=== PATIENT | male | born 1955 | race Caucasian/White ===

== ENCOUNTER → 2023-05-09 09:53 | Outpatient (REF) | payer OTHER, SELFPAY | LOC: DHVS 09:53 | PROVIDERS: ATTENDING PHYSICIAN Surgery Vascular Surgery | DX: I65.22 Occlusion and stenosis of left carotid artery (principal) | CPT/HCPCS: 93880; 93922; 93925 ==

== ENCOUNTER → 2024-01-16 13:02 | Outpatient (REF) | payer OTHER, SELFPAY | LOC: RAD 13:02 | PROVIDERS: ATTENDING PHYSICIAN Surgery Vascular Surgery | DX: I73.9 Peripheral vascular disease, unspecified (principal); Z98.890 Other specified postprocedural states; I65.22 Occlusion and stenosis of left carotid artery | CPT/HCPCS: 93880; 93922; 93925; 93978 ==

== ENCOUNTER → 2024-02-01 16:59 | Outpatient (REF) | payer OTHER, SELFPAY | LOC: RAD 16:59 | PROVIDERS: ATTENDING PHYSICIAN Physician Assistant; FAMILY PHYSICIAN Surgery Vascular Surgery | DX: I65.22 Occlusion and stenosis of left carotid artery (principal) | CPT/HCPCS: 70496; 70498; Q9967 ==

== ENCOUNTER → 2024-04-02 11:12 | Outpatient (REF) | payer OTHER, SELFPAY | LOC: HWRCS 11:12 | PROVIDERS: ATTENDING PHYSICIAN Internal Medicine Cardiovascular Disease | DX: I25.10 Atherosclerotic heart disease of native coronary artery without angina pectoris (principal); I65.23 Occlusion and stenosis of bilateral carotid arteries; Z01.818 Encounter for other preprocedural examination | CPT/HCPCS: 78452; 93017; A9500; J2785 ==

== ENCOUNTER 2024-04-18 06:55 | Inpatient (IN) | payer OTHER, SELFPAY ==
[2024-04-15 10:47] VITALS: BMI 28.0
[2024-04-15 11:19] LABS: % Basophils 1.1 % (0-2); % Eosinophils 4.4 % (0-6); % Immature Granulocytes 0.6 % (0-0.5); % Lymphocytes 19.5 % (20.5-51.1); % Monocytes 7.4 % (1.7-9.3); Absolute Basophils 0.1 10^3/uL (0-0.2); Absolute Eosinophils 0.4 10^3/uL (0-0.7); Absolute Immature Granulocytes 0.1 10^3/uL (0-0.05); Absolute Lymphocytes 1.9 10^3/uL (1.2-3.4); Absolute Monocytes 0.7 10^3/uL (0.1-0.6); Absolute Neutrophils 6.5 10^3/uL (1.4-6.5); Hemoglobin 9.3 g/dL (13.0-18.0); Mean Corpuscular Hgb 30.4 pg (27.0-31.0); Mean Platelet Volume 11.1 fL (7.4-10.4); Nucleated Red Blood Cells % 0 % (-); Platelet Count 190 10^3/uL (130-400); Red Blood Cell Count 3.06 10^6/uL (4.70-6.10); Red Cell Dist. Width 16.6 % (11.5-14.5); White Blood Cell Count 9.7 10^3/uL (4.8-10.8)
[2024-04-15 11:24] LABS: INR 1.74; PT 20.6 Sec (11.4-14.6)
[2024-04-15 11:55] LABS: Blood Urea Nitrogen 63 mg/dl (9-20); Calcium 9.6 mg/dl (8.4-10.2); Carbon Dioxide 27 mmol/L (22-30); Chloride 97 mmol/L (98-107); Estimated Creatinine Clearance 8 ml/min; Glucose 102 mg/dl (70-99); Potassium 4.2 mmol/L (3.5-5.1); Sodium 139 mmol/L (135-145); eGFR 6.43
--- NOTE | 2024-04-16 13:13 | PTCARENOTE ---
Patients 04/15 INR 1.74- Kadi & Ana @ Dr. Nguyen office notified
[2024-04-18] VITALS (7 sets, daily range): BP systolic 56–124; BP diastolic 33–60; BMI 27.9; BMI 27.8
[2024-04-18] MEDS: PERIDEX 0.12% ORAL RINSE 15 ML PO (07:02)
[2024-04-18] MEDS: NSS 500 IV (07:02)
[2024-04-18] MEDS: BACTROBAN NASAL 1 GRAM NASAL (07:02)
--- NOTE | 2024-04-18 07:05 | W.SUR.PREOP ---
Pre-Operative Surgical Note
-
I have examined this patient prior to the performance of the scheduled procedure.
The patient's condition is unchanged from the time of the current History and
Physical and the patient is able to undergo the scheduled procedure.
[2024-04-18 07:21] LABS: Glucose - Point of Care 90 mg/dl (70-99)
[2024-04-18 07:52] LABS: INR 1.23; PT 16.1 Sec (11.4-14.6)
[2024-04-18 07:53] LABS: APTT 34.2 Sec (23.4-35.0)
--- NOTE | 2024-04-18 10:29 | W.SUR.POST ---
Surgical Immediate Post Op
Note
Pre Op Diagnosis: Right Carotid Stenosis
Post Op Diagnosis: Right Carotid Stenosis
Procedure Performed: Right carotid endarterectomy with bovine pericardium patch angioplasty with shunt placement and EEG monitoring and SSEP
Primary Surgeon: Quincy Zeng MD
Review Consultant: Chantal Matute [employer]
Anesthesia:GETA
Estimated Blood Loss:50 ml
Fluids: See anesthesia flow sheet
Drains/Shunts: N/A
Specimens/Cultures: Right carotid plaque
Doppler/Duplex/Angio (Y/N): Y
Complications: None
Operative Findings: upon awakening from anesthesia able to move BL UE and LE to command and spontaneous, tongue midline, and face symmetrical
[2024-04-18 11:00] LABS: Glucose - Point of Care 142 mg/dl (70-99)
[2024-04-18] MEDS: NSS 1000 IV (11:06)
--- NOTE | 2024-04-18 11:18 | OR.RPT ---
Operative Report
Operative Report
PROCEDURE DATE: 04/18/2024
Preoperative diagnosis: Asymptomatic critical right carotid artery stenosis.
Postoperative diagnosis: Same
Procedure: Right carotid endarterectomy with bovine pericardial patch angioplasty and intraoperative EEG and SSEP monitoring. (Need for intraoperative temporary shunt placement).
Surgeon: Karri
Sandwich Wrapper: JENNY Matute, required for all aspects of procedure including assistance with traction/countertraction, following of suture line, assistance with closure.
Complications: None
Anesthesia: General
Indications for procedure:
Critical right carotid artery stenosis. Asymptomatic. Risk/benefits/alternatives of revascularization fully discussed. Also discussed the extent of common carotid artery disease, and likely some irregular plaque in the common carotid artery and
limited ability to manage the extent of it. Patient and his family understood all wished to proceed.
Description of procedure:
Patient was identified brought to the operating room placed on the table in supine position. After the adequate administration of anesthesia and perioperative antibiotics he was prepped and draped in the standard surgical fashion. A standard
preoperative timeout was undertaken and everybody was in agreement the plan. A standard longitudinal incision was made in the right neck that was carried through the skin subcutaneous tissue. Using the electrocautery dissection was carried through
the platysma muscle layer and then alongside the anterior medial border of the sternocleidomastoid muscle. Then using a combination of sharp dissection with the Metzenbaum scissors and electrocautery I dissected along the anterior medial border of
the internal jugular vein. The common facial vein branch was ligated between silk ties and then divided. I then deepened my retraction. The common carotid artery was identified and carefully dissected away from the surrounding structures take
great care to avoid any injury to the structures. A vessel loop was passed around it which was double looped, but not yet tightened. It was noted to be soft proximally in the field. Note the vagus nerve was clearly noted anterior to the common
carotid artery, and carefully was dissected off the anterior carotid and laterally without actually grasping the nerve (but rather grasping the tissues around it), and thereby we were able to protect the nerve from harm's way through the entirety of
the case. I then continued my dissection up the common carotid artery to the bulb staying only on the anterior surface of the carotid artery. Then I carried the dissection up to the internal carotid artery and then to the distal internal carotid
artery. I identified where it was soft and carefully circumferentially dissected the internal carotid artery with minimal mobilization and passed a vessel loop around it. Note the hypoglossal nerve was preserved from harm's way. The patient was
given an appropriate dose of heparin 7500 units. Next I dissected the anterior surface of the external carotid artery. The superior thyroid branch was noted, but did not require circumferential dissection as there is a long enough neck of the
external carotid artery that could be controlled. The external carotid was then carefully circumferentially dissected with minimal mobilization and vessel loops passed around it which was double looped but not yet tightened. After 3 minutes of
heparin circulation time and confirmation of optimization of the blood pressure with my anesthesiology colleagues, I clamped the distal internal carotid artery where it was soft. There was no immediate EEG or SSEP changes. After 1 minute of test
clamp time there was no changes noted. Therefore at this point, the vessel loops on the external carotid artery was tightened and the common carotid artery was clamped where it was soft proximally. An arteriotomy was made on the common carotid
artery with an 11 blade and extended using a Rodríguez scissor. Was extended the arteriotomy onto the mid to distal internal carotid artery. [Plaque description]. A Canadian was then used to endarterectomized the plaque. An endarterectomy plane was
created, and the plaque was then endarterectomized. Distally I feathered the plaque out to a nice clean endpoint in the distal internal carotid artery. Next I endarterectomized the intima back to more normal intima in the common carotid artery,
and the intima was cut flush there. There was still some residual plaque in the common carotid artery proximally, but did not cause any luminal narrowing, and as I had noted on prior CT scan there is extensive plaque throughout the common carotid
artery. Therefore I found a nice endpoint to cut the plaque flush. I then grasped the plaque and everted plaque out of the origin of the external carotid artery. The plaque was then sent off for specimen. Of note the plaque was a mixed plaque
with calcified features, but a central more hemorrhagic component right at the origin of the internal carotid artery. The origin of the external carotid artery was carefully visualized and any fine debris were removed with fine forceps. Proximal
and distal endpoints were then carefully inspected. Any fine debris was removed with fine forceps, and the intima was noted to be nicely adherent proximally distally. Next any fine debris were removed throughout the endarterectomy bed with fine
forceps. I then flushed heparinized saline. I was very satisfied. Then, I used a bovine pericardial patch to sew a patch angioplasty with a running 6-0 Prolene suture. While I was suturing the patch into place, it was noted that there were SSEP
changes. The blood pressure had remained stable. Therefore at this point, I quickly was able to place a shunt into the internal carotid artery and secured it with Vesseloops, and allowed to backbleed before putting it into the common carotid
artery and then securing it. Immediately upon shunt placement, the SSEPs returned to baseline. Therefore at this point I continued to suture the patch into place. When I was close to completing the suture line, I then removed the shunt and
reclamped the internal carotid artery and common carotid arteries. I now quickly completed the suture line. Prior to completing and tying down my suture line, I backbled sequentially each branch and reclamped each branch prior to unclamping the
next branch. I then irrigated with heparinized saline. Then I completed and tied down my suture line. We then restored flow in the common carotid and external carotid arteries. There was a significant bleeding point in the most proximal aspect
of the patch on the common carotid artery. It appears there is a little defect from the patch to the wall may have been a little tear in the wall. I reclamped and quickly fix this with a 5-0 Prolene [id number] with a pledget. I then released
clamps again and this was hemostatic. Now we released our clamps on the external carotid and common carotid arteries again. Finally, we released flow in the internal carotid artery. There was excellent pulsatile flow in all 3 vessels. There was
an excellent Doppler signal in the internal carotid artery distal to the patch with a good normal low resistance Doppler signal. There was a good Doppler signal in the external carotid artery as well. A few 6-0 Prolene [id number] sutures were
placed along any bleeding points along the suture line. Protamine was given to reverse the heparin. Hemostasis was completely achieved. We then irrigated and confirmed full hemostasis. We then closed in layers with 2-0 Vicryl layer to
reapproximate the sternocleidomastoid muscle, followed by 3-0 Vicryl platysma muscle running layer, followed by 4 Monocryl subcuticular stitch. Dermabond was applied. The patient tolerated procedure well. He awoke moving all extremities to
command with tongue in the midline. All sponge, needle, instrument counts were correct at the end of the case. The patient was transported to recovery room in good condition.
[2024-04-18 11:36] LABS: Hematocrit 25.7 % (39.0-52.0); Hemoglobin 8.3 g/dL (13.0-18.0); Mean Corp Hgb Conc. 32.3 g/dL (33.0-37.0); Mean Corpuscular Hgb 31.1 pg (27.0-31.0); Mean Corpuscular Volume 96.3 fL (80.0-94.0); Mean Platelet Volume 11.1 fL (7.4-10.4); Platelet Count 167 10^3/uL (130-400); Red Blood Cell Count 2.67 10^6/uL (4.70-6.10); Red Cell Dist. Width 17.2 % (11.5-14.5); White Blood Cell Count 10.2 10^3/uL (4.8-10.8)
[2024-04-18 11:44] LABS: Blood Urea Nitrogen 24 mg/dl (9-20); Calcium 8.5 mg/dl (8.4-10.2); Carbon Dioxide 27 mmol/L (22-30); Chloride 98 mmol/L (98-107); Estimated Creatinine Clearance 14 ml/min; Glucose 148 mg/dl (70-99); Potassium 3.5 mmol/L (3.5-5.1); Sodium 135 mmol/L (135-145); eGFR 13.05
[2024-04-18 11:45] LABS: INR 1.44; PT 18.1 Sec (11.4-14.6)
[2024-04-18 11:46] LABS: APTT 35.9 Sec (23.4-35.0)
--- NOTE | 2024-04-18 12:15 | CON.INTV ---
Consultation
Consultation Request
Date/Time Consultation Requested: 04/18/2024856
Date/Time Consultation Performed: 04/18/2024912
Requesting Provider: GRACY Griggs
Performing Provider: Dr. Garcia
Reason for Consultation: s/p R-CEA
Medical History
-
Chief Complaint: Elective R-CEA
History of Present Illness:
69-year-old male with a past medical history of bilateral carotid artery stenosis, PAD, history of AAA s/p repair, ESRD on HD MWF, history of CAD, A-fib on Eliquis, DM type II, hypertension, history of thrombotic occlusion of left ICA and
hyperlipidemia who presents with right carotid endarterectomy. Patient known to the vascular surgery service with last visit on 02/20/[address] Zeng. Patient has had right-sided progression of his stenosis although he remains asymptomatic. He
has a history of left carotid endarterectomy and he has >75% stenosis however remains asymptomatic and has a significant intramural hematoma throughout. Because of this, left-sided carotid intervention was not recommended however the right side was
recommended to be intervened upon. Risks and benefits and alternatives of revascularization were discussed and patient agreed to a vascular procedure. Today he underwent right carotid endarterectomy with bovine pericardial patch angioplasty.
There were no immediate complications and he was transferred to the ICU postoperatively for further care, and [employer] services consulted for additional management/recommendations.
Patient arrived to the ICU from the PACU at approximately 12 PM on 04/18/2024. When I saw the patient, he was resting in bed in no acute distress. Currently on Nathanael-Synephrine at 10 mcg/min. BP via A-line: 121/46, saturating 97% on room air and
heart rate 98. Patient's , Cresencio, is at bedside. All questions were answered. Patient currently feels well, denies chest pain, SOB, CHAN, nausea, fevers or chills. He has tenderness along the right side of his neck where the incision was
made/surgery was performed.
PMHx: History of CVA with right-sided weakness, A-fib on Eliquis, AAA s/p repair, hyperlipidemia, orthostatic hypotension on midodrine, history of CAD, ESRD on HD MWF, DM type II, hypertension, history of thrombotic occlusion of left ICA
PSHx: AAA repair (2017), left upper extremity AV fistula creation (2018), history of left CEA (11/05/2020)
Past Medical History
Past Medical History: Other (Above as per HPI)
Past Surgical History: Other (Above as per HPI)
Social History
Tobacco: Former Smoker (Quit smoking approximately 26 years ago, smoked 1-1.5 PPD x 20-25 years)
Alcohol: None
Drug: None
Personal:
Living: With Family
Family History
Family History: CAD (Mother) and Hypertension (Mother)
Allergies / Home Medications
Allergies
Allergy/AdvReac Type Severity Reaction Status Date / Time
adhesive Allergy Shortness Verified 04/18/24 06:39
of Breath
Home Medications
�Medication �Instructions �Recorded �Confirmed �Last Taken �Type
apixaban 5 mg tablet (Eliquis) 5 mg PO BID 11/02/20 04/18/24 04/16/24 08:00 History
aspirin 81 mg tablet,delayed 81 mg PO DAILY 11/02/20 04/18/24 04/18/24 05:00 History
release
diltiazem HCl 120 mg 120 mg PO DAILY 11/02/20 04/18/24 04/18/24 05:00 History
capsule,extended release 24 hr
midodrine 10 mg tablet 10 mg PO TID 11/02/20 04/18/24 04/18/24 05:00 History
glimepiride 2 mg tablet 4 mg PO BID 12/21/21 04/18/24 04/17/24 20:00 History
metoprolol tartrate 100 mg tablet 100 mg PO BID 12/21/21 04/18/24 04/18/24 05:00 History
(Lopressor)
insulin degludec 100 unit/mL (3 15 unit SC HS 04/09/24 04/18/24 04/17/24 08:00 History
mL) subcutaneous pen (Tresiba
FlexTouch U-100 insulin)
pioglitazone 15 mg tablet 15 mg PO DAILY 04/09/24 04/18/24 04/17/24 20:00 History
rosuvastatin 40 mg tablet 40 mg PO HS 04/09/24 04/18/24 04/17/24 20:00 History
Review of Systems
-
History Source: Patient
All other systems: Negative unless noted
Vitals / Labs / Diagnostic Testing
Vital Signs
Temp Pulse Resp BP Pulse Ox
98.7 F 95 15 103/38 98
04/18/24 15:43 04/18/24 17:30 04/18/24 17:30 04/18/24 17:30 04/18/24 17:30
Lab Data
04/18/24 11:12
04/18/24 11:12
Laboratory Results
04/18/24 04/18/24
07:14 11:12
PT 16.1 H 18.1 H
INR 1.23 1.44
APTT 34.2 35.9 H
Diagnostic Testing:
Physical Exam
-
HEENT: Normocephalic, Anicteric and Other (Linear closed incision along right anterior neck with ice pack on incision)
Cardiovascular: S1/S2 and Peripheral Edema (negative)
Respiratory: Clear, Wheeze (negative), Rales (negative), Rhonchi (negative) and Accessory Resp Muscle Use (negative)
GI: Soft, Non Distended, Non Tender and Normal Bowel Sounds
Neurology: Awake, Alert and Tremors (negative)
Skin: Warm and Dry
General: Respiratory Distress (negative), Comfortable, Fever (negative) and Chills (negative)
Assessment
-
Assessment: 69-year-old male with a past medical history of bilateral carotid artery stenosis, PAD, history of AAA s/p repair, ESRD on HD MWF, history of CAD, A-fib on Eliquis, DM type II, hypertension, history of thrombotic occlusion of left ICA
and hyperlipidemia who presents with right carotid endarterectomy. Patient known to the vascular surgery service with last visit on 02/20/[address] Zeng. Patient has had right-sided progression of his stenosis although he remains asymptomatic.
He has a history of left carotid endarterectomy and he has >75% stenosis however remains asymptomatic and has a significant intramural hematoma throughout. Because of this, left-sided carotid intervention was not recommended however the right side
was recommended to be intervened upon. Risks and benefits and alternatives of revascularization were discussed and patient agreed to a vascular procedure. Today he underwent right carotid endarterectomy with bovine pericardial patch angioplasty.
There were no immediate complications and he was transferred to the ICU postoperatively for further care, and [employer] services consulted for additional management/recommendations.
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
left ICA
Impression:
#Asymptomatic critical right carotid artery stenosis s/p right carotid endarterectomy with bovine pericardial patch angioplasty and intraoperative EEG and SSEP monitoring (POD #0)
#Acute on chronic anemia
#History of CVA with residual right-sided hemiplegia
#ESRD on HD MWF
#Orthostatic hypotension on midodrine
#History of AAA s/p repair
#DM type II
#Hyperlipidemia
#Hypertension
#History of thrombotic occlusion of left ICA
#Former tobacco smoker (quit smoking approximately 26 years ago, smoked 1-1.5 PPD x 20-25 years)
Plan:
Postoperative surgical intensive care unit monitoring
Supplemental oxygen as needed to maintain SpO2 >90-94%
prn nebulized bronchodilators
Incentive spirometry encouraged 10x per hour for at least 4 hrs a day
Aspiration precautions
Pain control
Neuro and vascular checks per protocol
Maintain MAP>65 --> wean down Nathanael-Synephrine as tolerated to maintain this MAP goal
Replete electrolytes with K>4, Mg>2
Maintain euglycemia with goal BG 140-180
Vascular surgery following-correspondence and operative notes reviewed
Transfuse blood products as needed to keep Hb>7g/dL, and plt>50k (given post-operative status)
DVT prophylaxis
Early nutrition
Early mobilization
Critical care statement: A total of 41 minutes of critical care time was provided for this patient today. This includes management of unstable vital signs, evaluation of the patient at bedside, reviewing the patient's pertinent medical records
including radiographs, microbiology, laboratory evaluations, and discussion with primary team, consultants, pharmacy, nutrition, physical therapy, case management, charge nurse, critical care nursing, and respiratory therapy.
[2024-04-18] MEDS: ProAmatine 10 MG PO ×2 (12:59→17:30)
[2024-04-18] MEDS: NEO-SYNEPHRINE 250 IV (13:07)
--- NOTE | 2024-04-18 13:16 | PTCARENOTE ---
patient received from PACU@1200. utilizing video director imaging. patient oriented to room, reviewed plan of care. denies pain,nausea. questions answered. vascular PAC updated re fluids ordered and running as patient is anuric and on HD. orders
received. neuro intact, slight right arm and leg weakness which spouse states in residual from prior cva. symmetrical smile. pupils equal and reactive. monitor afib with occasional pvc. right radial arterial line with cuff correlation. anuric.
abdomen soft, obese. call baltazar in reach. lungs clear, oxygen removed per protocol, pulse oximeter 96 on room air
--- NOTE | 2024-04-18 14:59 | W.CON.NEPH ---
Consultation
-
Date/Time Consultation Requested: 04/18/24 0844
Date/Time Consultation Performed: 04/18/24 1500
Requesting Provider: Quincy Iqbal
Performing Provider: Carolina Gonzáles
Reason for Consultation: ESRD
Medical History
-
Chief Complaint: for elective right CEA
History of Present Illness:
69y/o M with PMH of PAD, AAA repair, ESRD on HD left UR AVG MWF at [facility], left carotid CEA, HTN, Afib on diltiazem ELiquis, BB,orhtostatic hypotension on midodrine, DM on glimepride, insulin, Pioglitazone, HLD on statin who presented
electively for right carotis art stenosis. He underwent surg successfully now observing in ICU. He is also on low dose jm for BP goal per vascular.He offers no cp or sob. no n/v. No fever.
Past Medical History
HTN, DM, ESRD, AAA repair, CVA, CAD, occlusion of left ICA s/p stent
HLD, orhtostatic hypotension, Afib
Social History
Tobacco: Former Smoker
Alcohol: None
Drug: None
Personal:
Living: With Family
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
Family History
Family History: Not Pertinent
Allergies / Home Medications
Allergy/AdvReac Type Severity Reaction Status Date / Time
adhesive Allergy Shortness Verified 04/18/24 06:39
of Breath
�Medication �Instructions �Recorded �Confirmed �Type
apixaban 5 mg tablet (Eliquis) 5 mg PO BID 11/02/20 04/18/24 History
aspirin 81 mg tablet,delayed 81 mg PO DAILY 11/02/20 04/18/24 History
release
diltiazem HCl 120 mg 120 mg PO DAILY 11/02/20 04/18/24 History
capsule,extended release 24 hr
midodrine 10 mg tablet 10 mg PO TID 11/02/20 04/18/24 History
glimepiride 2 mg tablet 4 mg PO BID 12/21/21 04/18/24 History
metoprolol tartrate 100 mg tablet 100 mg PO BID 12/21/21 04/18/24 History
(Lopressor)
insulin degludec 100 unit/mL (3 15 unit SC HS 04/09/24 04/18/24 History
mL) subcutaneous pen (Tresiba
FlexTouch U-100 insulin)
pioglitazone 15 mg tablet 15 mg PO DAILY 04/09/24 04/18/24 History
rosuvastatin 40 mg tablet 40 mg PO HS 04/09/24 04/18/24 History
Review of Systems
-
all complete 12 point ROS have been inquired and found negative other than stated in HPI
Physical Exam
Vital Signs
Vital Signs
Temp Pulse Resp BP Pulse Ox
98.3 F 97 15 111/43 98
04/18/24 12:00 04/18/24 14:45 04/18/24 14:45 04/18/24 12:59 04/18/24 14:45
Lab Results
WBC 10.2 10^3/uL (4.8-10.8) 04/18/24 11:12
RBC 2.67 10^6/uL (4.70-6.10) L 04/18/24 11:12
Hgb 8.3 g/dL (13.0-18.0) L 04/18/24 11:12
Hct 25.7 % (39.0-52.0) L 04/18/24 11:12
Plt Count 167 10^3/uL (130-400) 04/18/24 11:12
Sodium 135 mmol/L (135-145) 04/18/24 11:12
Potassium 3.5 mmol/L (3.5-5.1) 04/18/24 11:12
Chloride 98 mmol/L (98-107) 04/18/24 11:12
Carbon Dioxide 27 mmol/L (22-30) 04/18/24 11:12
BUN 24 mg/dl (9-20) H 04/18/24 11:12
Creatinine 4.6 mg/dL (0.7-1.3) H* 04/18/24 11:12
eGFR 13.05 04/18/24 11:12
Glucose 148 mg/dl (70-99) H 04/18/24 11:12
Calcium 8.5 mg/dl (8.4-10.2) 04/18/24 11:12
Physical Exam
General: Awake, Alert, Oriented, AOx3 and No Distress
HEENT: EOMI, Anicteric, Conjunctivae Clear, Neck Supple and Other (right CEA incision clean )
Respiratory: Clear, Normal Excursion and Nonlabored Respirations
Cardiac: S1/S2 and Regular Rate/Rhythm
Breast: Deferred by me
Abdomen: Soft, Nontender and Nondistended
Musculoskeletal: No Cyanosis and No Edema
Skin: No Rash and Warm
Neuro: Nonfocal/Grossly Intact
Psych: Mood/afflect pleasant, Insight/judgement good and Appropriate
Vascular Access: AVG
Assessment/Plan
-
IMP:
s/p Right carotid endarterectomy with bovine pericardial patch angioplasty 04/18
ESRD -MWF through left AVG, at [facility]
orthostatic hypotension
Anemia of CKD
HTN
Afib
left CEA
AAA repair
HLD
DM
Plan:
a/p Right carotid endarterectomy with bovine pericardial patch angioplasty today
BP goal per vascular on jm
cont midodrine for orthostatic hypotension
metabolic parameters are acceptable
HD tomorrow
MODE for anemia
d/w and nursing
--- NOTE | 2024-04-18 15:53 | PTCARENOTE ---
reassessed. neuro unchanged. right neck incision intact. patient denies pain. tolerated clear liquids. cradle placer in, patient to receive HD tommorrow. jm weaned to off
[2024-04-18 17:12] LABS: Glucose - Point of Care 214 mg/dl (70-99)
[2024-04-18] MEDS: NOVOLOG FLEXPEN-LOW RESISTANCE 2 UNITS SC (17:30)
--- NOTE | 2024-04-18 17:37 | PTCARENOTE ---
scheduled midodrine administered. systolic BP 90-100. jm resumed
[2024-04-18] MEDS: AMARYL 4 MG PO (19:52)
[2024-04-18] MEDS: LOPRESSOR PO (19:52)
--- NOTE | 2024-04-18 20:00 | PTCARENOTE ---
Resumed care of pt sitting up in bed watching TV, AAOx3. Pt is Micronesian speaking but able to make needs known and follow commands, speaks broken Arabic. Neuro checks as documented. HR in the 90's to low 100's Afib on the monitor. HR irreg. POX 98%
on RA. Lungs dec @ bases. Round obese abd. + bowel. Pt anuric at baseline, with occasional urine output. scheduled for HD in am. Left AV fistula in place +B/T. Right radial Dayanara in place. Right hand int capped. Right forearm INT infusing Nathanael to
keep SPB between 100-165. weak pedal pulses present. Right neck incision open to air with surg glue in place, ecchymosis noted, PRN ICE per MD order. Pt denies any complaints of pain at this time. Call baltazar in reach. Will continue to monitor.
[2024-04-18] MEDS: CRESTOR 40 MG PO (21:38)
[2024-04-18] MEDS: LANTUS 0.15 UNITS SC (21:38)
[2024-04-18 21:45] LABS: Glucose - Point of Care 268 mg/dl (70-99)
[2024-04-19] VITALS (10 sets, daily range): BP systolic 102–148; BP diastolic 53–105; BMI 27.9
[2024-04-19] LABS: Glucose - Point of Care 219 mg/dl (70-99)
[2024-04-19] MEDS: NOVOLOG FLEXPEN 3 UNITS SC (00:16)
--- NOTE | 2024-04-19 00:24 | PTCARENOTE ---
Pt resting intermittently. Neuro checks as documented. pt continues to deny any complaints of pain. Nathanael continues to infuse to keep SBP 100-165 per MD order. No changes in assessment noted at this time. Call baltazar in reach. Will continue to monitor.
[2024-04-19 04:25] LABS: Hemoglobin 8.4 g/dL (13.0-18.0); Mean Corp Hgb Conc. 32.3 g/dL (33.0-37.0); Mean Corpuscular Hgb 30.8 pg (27.0-31.0); Mean Corpuscular Volume 95.2 fL (80.0-94.0); Mean Platelet Volume 10.9 fL (7.4-10.4); Platelet Count 186 10^3/uL (130-400); Red Blood Cell Count 2.73 10^6/uL (4.70-6.10); Red Cell Dist. Width 17.2 % (11.5-14.5); White Blood Cell Count 15.2 10^3/uL (4.8-10.8)
--- NOTE | 2024-04-19 04:40 | PTCARENOTE ---
Pt resting intermittently, Q1 neuro checks remains unchanged. Pt inc of small amount of urine. CHG bath provided. Coco care provided. Am labs obtained. Pt positioned per comfort. denies any complaints at this time. NO other changes in assessment
noted. Will continue to monitor.
[2024-04-19 04:50] LABS: Blood Urea Nitrogen 40 mg/dl (9-20); Carbon Dioxide 23 mmol/L (22-30); Chloride 97 mmol/L (98-107); Estimated Creatinine Clearance 11 ml/min; Glucose 174 mg/dl (70-99); Potassium 4.1 mmol/L (3.5-5.1); Sodium 135 mmol/L (135-145); eGFR 10.09
[2024-04-19 04:57] LABS: PT 15.8 Sec (11.4-14.6)
[2024-04-19 04:58] LABS: APTT 32.4 Sec (23.4-35.0)
[2024-04-19] MEDS: HEPARIN 5000 UNITS SC ×2 (05:48→07:40)
[2024-04-19] MEDS: NOVOLOG FLEXPEN-MODERATE RESISTANCE 1 UNITS SC (07:39)
[2024-04-19] MEDS: ProAmatine 10 MG PO ×3 (07:41→17:15)
[2024-04-19] MEDS: ACTOS 15 MG PO (07:41)
[2024-04-19] MEDS: AMARYL 4 MG PO (07:41)
[2024-04-19] MEDS: CARDIZEM CD PO (07:41)
[2024-04-19] MEDS: LOPRESSOR PO (07:41)
[2024-04-19] MEDS: ASPIR LOW (ENTERIC COATED) 81 MG PO (07:42)
[2024-04-19 07:49] LABS: Glucose - Point of Care 172 mg/dl (70-99)
--- NOTE | 2024-04-19 08:17 | W.PN.INTV ---
Today's Communication / Plan
Recommendations
Continue with vasopressors and wean down Nathanael-Synephrine as BP tolerates
Goal BG 140�180, increase Lantus to 18 units HS and continue ISS moderate resistance
Continue HD as per nephrology
Postoperative management as per vascular surgery
Up OOB as tolerated, although would keep in bed until BP improves and off vasopressors
Encourage incentive spirometer
Pain control
Continue ICU level care for this critically ill patient
Assessment
-
Assessment: 69-year-old male with a past medical history of bilateral carotid artery stenosis, PAD, history of AAA s/p repair, ESRD on HD MWF, history of CAD, A-fib on Eliquis, DM type II, hypertension, history of thrombotic occlusion of left ICA
and hyperlipidemia who presents with right carotid endarterectomy. Patient known to the vascular surgery service with last visit on 02/20/[address] Zeng. Patient has had right-sided progression of his stenosis although he remains asymptomatic.
He has a history of left carotid endarterectomy and he has >75% stenosis however remains asymptomatic and has a significant intramural hematoma throughout. Because of this, left-sided carotid intervention was not recommended however the right side
was recommended to be intervened upon. Risks and benefits and alternatives of revascularization were discussed and patient agreed to a vascular procedure. Today he underwent right carotid endarterectomy with bovine pericardial patch angioplasty.
There were no immediate complications and he was transferred to the ICU postoperatively for further care, and Aged Or Disabled Care Worker services consulted for additional management/recommendations.
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
left ICA
Impression:
#Asymptomatic critical right carotid artery stenosis s/p right carotid endarterectomy with bovine pericardial patch angioplasty and intraoperative EEG and SSEP monitoring (POD #1)
#Circulatory shock now requiring vasopressors in the setting of chronic hypotension on outpatient midodrine
#Acute on chronic anemia
#History of CVA with residual right-sided hemiplegia
#ESRD on HD MWF
#Orthostatic hypotension on midodrine
#History of AAA s/p repair
#DM type II
#Hyperlipidemia
#Hypertension
#History of thrombotic occlusion of left ICA
#Former tobacco smoker (quit smoking approximately 26 years ago, smoked 1-1.5 PPD x 20-25 years)
Plan:
Postoperative surgical intensive care unit monitoring
Supplemental oxygen as needed to maintain SpO2 >90-94%
prn nebulized bronchodilators
Incentive spirometry encouraged 10x per hour for at least 4 hrs a day
Aspiration precautions
Pain control
Neuro and vascular checks per protocol
Maintain MAP>65 --> wean down Nathanael-Synephrine as tolerated to maintain this MAP goal
Replete electrolytes with K>4, Mg>2
Continue with HD as scheduled per nephrology
Ultrafiltration as tolerated given his hypotension on vasopressors
Maintain euglycemia with goal BG 140-180 and continue with basal�bolus SQ insulin in addition to glimepiride + pioglitazone
Vascular surgery following-correspondence and operative notes reviewed
Transfuse blood products as needed to keep Hb>7g/dL, and plt>50k (given post-operative status)
DVT prophylaxis: Eliquis
Early nutrition
Early mobilization
Continue ICU level care for this critically ill patient on vasopressors.
Critical care statement: A total of 36 minutes of critical care time was provided for this patient today. This includes management of unstable vital signs, evaluation of the patient at bedside, reviewing the patient's pertinent medical records
including radiographs, microbiology, laboratory evaluations, and discussion with primary team, consultants, pharmacy, nutrition, physical therapy, case management, charge nurse, critical care nursing, and respiratory therapy.
Subjective Dataa
Subjective Data
Date of Service:
Date of Service: April 19, 2024
Chief Complaint: Aged Or Disabled Care Worker Follow Up
Subjective:
Patient seen and evaluated this morning. Heart rate 82, BP 126/50 via A-line on Nathanael-Synephrine at 10 mcg/min. Now starting HD this morning. Unable to get his cardizem or lopressor this AM due to hypotension. Patient's is at bedside.
Patient has no complaints, denying chest pain, SOB, abdominal pain, nausea, fevers or chills.
Review of Systems
General: Other (Negative unless mentioned above)
Objective Data
Data Reviewed
Vital Signs / I&O / Oxygen:
Vital Signs
Temp Pulse Resp BP Pulse Ox
97.7 F 99 14 114/66 97
04/19/24 03:26 04/19/24 09:15 04/19/24 09:15 04/19/24 07:41 04/19/24 09:15
Intake and Output
04/18/24 04/19/24 04/20/24
06:59 06:59 06:59
Intake Total 1042.5 / 1048.5 252 / 252
Output Total 225 / 225
Balance 817.5 / 823.5 252 / 252
SaO2 97
Physical Exam
General: Respiratory Distress (negative), Comfortable, Chills (negative) and Sweats (negative)
HEENT: Anicteric and Other (Linear closed incision along right anterior neck)
Cardiovascular: S1-S2, Rub (negative) and Peripheral Edema (negative)
Respiratory: Clear, Wheeze (negative), Crackles (negative), Rhonchi (negative) and Non-Labored Respirations
GI: Soft, Non Distended, Non Tender and Normal Bowel Sounds
Neurology: Awake, Alert and Tremors (negative)
Skin: Warm, Dry, Cyanosis (negative) and Jaundice (negative)
Labs/Micro/Reports
Lab Data
04/19/24 04:13
04/19/24 04:13
Laboratory Results
04/18/24 04/19/24
11:12 04:13
PT 18.1 H 15.8 H
INR 1.44 1.20
APTT 35.9 H 32.4
--- NOTE | 2024-04-19 08:21 | W.PN.VS ---
Addendum entered and electronically signed by Quincy Zeng MD 04/19/24 08:54:
Seen and examined with JENNY Almonte. Agree with findings as noted below. Patient without complaints. Right neck incision is clean dry and intact. No hematoma. Neurologically no focal deficits. Tongue midline. Plan/as discussed and noted below.
Original Note:
Today's Communication / Plan
-
Seen and assessed with Dr. Zeng
Assessment/Plan
-
POD 1 right CEA
Plan:
-DC A-line
-DC IV fluids
-Wean off jm as able
-Hold Lopressor and Cardizem this morning
-HD this morning per nephrology
-Possible discharge later this afternoon will reassess
Subjective Data
-
Date of Service: April 19, 2024
Patient seen at bedside exam with Dr. Zeng. Patient offers no complaints this time. No events overnight.
Objective Data
-
Vital Signs
Temp Pulse Resp BP Pulse Ox
97.7 F 92 13 114/66 97
04/19/24 03:26 04/19/24 07:41 04/19/24 05:45 04/19/24 07:41 04/19/24 05:45
Intake and Output
04/18/24 04/19/24 04/20/24
06:59 06:59 06:59
Intake Total 1042.5 / 1042.5
Output Total 225 / 225
Balance 817.5 / 817.5
Intake:
Oral fluids 840 / 840
IV fluids (Total) 202.5 / 202.5
Neosynephrine 72.5 / 72.5
Nss 1,000 ml @ 80 mls/hr IV . 80 / 80
[id number] [facility] Rx#:[id number]
normosol 50 / 50
Output:
Urine, Voided 225 / 225
Other:
How many times incontinent 1
SMALL amount urine
Lab Results
04/19/24 04:13
04/19/24 04:13
Calcium 9.0 mg/dl (8.4-10.2) 04/19/24 04:13
Physical Exam
-
AAOx3
No tachypnea on room air
No tachycardia
Abdomen soft nontender
Neck site clean, dry, intact with mild ecchymosis, no drainage noted
Follows all commands
Tongue midline
--- NOTE | 2024-04-19 08:46 | PTCARENOTE ---
Addendum entered by Anni Pisano RN 04/19/24 09:49:
hypotensive post jm off, resumed per work list. patient refusing to get out of bed at this time, 'wait till after dialysis'
Original Note:
report received, assessments per work list. denies pain. neuro check at handoff from previous shift.jm per work list. right radial arterial line with goof waveform and cuff correlation. am lopressor and cardizem not given per ordered parameters and
vascular instruction. to not d/c arterial line until jm off and HD completed. lungs with basilar crackles. occasional cough. right neck incision bruised, approximated without drainage. good appetite for breakfast. call baltazar in reach
--- NOTE | 2024-04-19 11:11 | PTCARENOTE ---
vascular sports trainer updated with inability to wean off jm at this time. ok to leave arterial line in place until post HD and while on jm gtt. spouse at bedside. updated with plan of care
[2024-04-19] MEDS: NOVOLOG FLEXPEN-MODERATE RESISTANCE 9 UNITS SC (11:27)
--- NOTE | 2024-04-19 11:33 | PTCARENOTE ---
HD rn at bedside. prelunch accucheck 366. coverage per orders. vascular food service sales representatives updated by tiger text. orders pending
--- NOTE | 2024-04-19 11:34 | CM ---
CM following re: discharge planning.
Reviewed pt's chart, met with pt.
Pt is a 69 year old male, admitted with primary dx of POD 1 right CEA. per Vascular Surgery, possible discharge home this afternoon after re-assessment. Pt is aware, expressed his agreement and he stated his daughter will transport home. IMM
reviewed, placed on chart, pt has a copy.
Pt report he was born and grew up in [place], emigrated to [place] in 1994 and resides with family in [place]. Pt reports he lives with spouse and a daughter 2 SH, 2 steps to enter, has 3 supportive children. Pt reports he uses a cane, has a
shower chair, has been on HD treatment for the past 6 years, [facility], MW, chair time 2:00 p.m.
PCP: Rosetta Lino
Pharmacy: [facility].
D/C plan: home with resumptions of outpatient HD treatment at [facility] and family support. Daughter to transport at discharge.
CM will follow with discharge plan updates as hospitalization progresses
[2024-04-19 11:37] LABS: Glucose - Point of Care 366 mg/dl (70-99)
--- NOTE | 2024-04-19 12:57 | PTCARENOTE ---
accucheck repeated. discussed with pharmacy and geothermal heat pump machinist. to repeat at 1630, if still >200, then geothermal heat pump machinist will be notified and additional orders to be received
[2024-04-19 13:02] LABS: Glucose - Point of Care 227 mg/dl (70-99)
--- NOTE | 2024-04-19 13:16 | PN.DE.MGMTRT ---
Insulin Management
- -
04/19/2024: Diabetes Management Consult
69 year old male who presented with asymptomatic right carotid stenosis. PMH: CAD, A-Fib, HTN, HLD, B/L Carotid artery stenosis, PAD, h/o AAA s/p repair, ESRD on HD MWF, h/o thrombotic occlusion of left ICA and T2DM. Patient known to the vascular
surgery service with last visit on 02/20/[address] Zeng. Patient has had right-sided progression of his stenosis although he remains asymptomatic. He has a history of left carotid endarterectomy and he has >75% stenosis however remains
asymptomatic and has a significant intramural hematoma throughout. Because of this, left-sided carotid intervention was not recommended however the right side was recommended to be intervened upon. 04/18 pt underwent right carotid endarterectomy. A1C
6.3%, Cr 5.7, eGFR 10.09
Patient awake, alert, feels well, sitting up in chair, offers no complaints, able to discuss diabetes care plan. at bedside, very supportive.
Pt has a Glucose monitor, tests his blood sugar once a day, instructed to increase testing schedule to BID.
Had HD today, diabetes regimen includes: Glimepiride 4mg BID, Actos 15mg daily, and Lantus 15 units @ HS.
Of note, pt received IV steroids during surgery, contributing to Hyperglycemia. HS glucose was 219, FBG 174(V), 172 POC, pre-lunch glucose trended up to 366, pt received [address] units [address] Garcia has increased his Lantus dose to 18 units.
Will not make further changes to current regimen for now.
Will monitor closely and consider initiating Critical care glycemic Protocol if glucose remains>180
Meds at Discharge: Glimepiride 4mg BID, Actos 15mg daily, and Tresiba 15 units @ HS.
Diabetes History
- -
Type of Diabetes: 2 requiring insulin
Pre-Admission Diabetes Regimen
04/19/24
04:13
Creatinine 5.7 H*
Insulin Pump Settings
IP Diabetes Regimen
04/18/24 04/18/24 04/18/24
17:01 21:34 23:49
Glucose
POC Glucose 214 H 268 H 219 H
04/19/24 04/19/24 04/19/24
04:13 07:37 11:26
Glucose 174 H
POC Glucose 172 H 366 H
04/19/24
12:51
Glucose
POC Glucose 227 H
Meal type: Dinner
Meal type: Lunch
Amount consumed: 100%
Amount consumed: 75%
Patient Education
[2024-04-19] MEDS: RETACRIT 8000 UNITS IV (14:13)
[2024-04-19 14:28] LABS: Glycohemoglobin (HgbA1c) 6.3 % (4.0-5.6)
[2024-04-19] MEDS: NEURONTIN 100 MG PO (16:00)
--- NOTE | 2024-04-19 16:03 | PTCARENOTE ---
hd completed. jm off. patient without complaints. will monitor blood pressures off jm
[2024-04-19 17:00] LABS: Glucose - Point of Care 95 mg/dl (70-99)
[2024-04-19] MEDS: NOVOLOG FLEXPEN-MODERATE RESISTANCE SC (17:07)
--- NOTE | 2024-04-19 17:10 | W.PN.NEPH.HD ---
Assessment
-
Seen on HD. no complaints. VSS< access ok
Progress Note - Hemodialysis
-
Date of Service: April 19, 2024
Duration: 30 minutes and 3 hours
Potassium Bath: 3
Calcium Bath: 2.5
Opti-Dialyzer: 160
Ultrafiltration: Other (2kg)
Blood Flow: 400
Dialysate Flow: 600
Heparin: 0
EPO: 8000 units
[2024-04-19] MEDS: AMARYL PO (17:14)
--- NOTE | 2024-04-19 17:19 | PTCARENOTE ---
arterial line removed oob to chair with assist of one. , appetite good for dinner. vitals as noted. heart rate 100-140's afib. tiger text to Beckie Garcia vascular ux interaction designer to update. per beckie patient to take scheduled Lopressor at 1999. call
baltazar in reach. spouse updated at bedside. diabetic client business manager at bedside. pm Amaryl held per her direction. patient has hiccoughs intermittently in spite of one time dose Neurontin
[2024-04-19] MEDS: LOPRESSOR 100 MG PO (19:58)
[2024-04-19] MEDS: ELIQUIS 5 MG PO (19:58)
--- NOTE | 2024-04-19 20:09 | PTCARENOTE ---
Pt AOx3, Marshallese speaking, understands basic Romansh, translation phone in room. Afib on monitor 95-120. PALOMINO, right side slightly weaker then left. Pupils are equal and reactive. Q4hour neuro checks. Right carotid incision CDI with surgical glue,
soft and ecchymotic. SBP improved 148/53 metoprolol given. Pt offers no complaints at this time, will continue with plan of care.
[2024-04-19 22:03] LABS: Glucose - Point of Care 190 mg/dl (70-99)
[2024-04-19] MEDS: CRESTOR 40 MG PO (23:13)
[2024-04-19] MEDS: LANTUS 0.18 UNITS SC (23:13)
[2024-04-20] VITALS (16 sets, daily range): BP systolic 102–127; BP diastolic 50–89; BMI 27.3
[2024-04-20 06:14] LABS: Blood Urea Nitrogen 30 mg/dl (9-20); Calcium 8.7 mg/dl (8.4-10.2); Carbon Dioxide 28 mmol/L (22-30); Chloride 96 mmol/L (98-107); Estimated Creatinine Clearance 17 ml/min; Glucose 66 mg/dl (70-99); Potassium 3.9 mmol/L (3.5-5.1); Sodium 133 mmol/L (135-145); eGFR 16.42
--- NOTE | 2024-04-20 06:26 | PTCARENOTE ---
BG 66 with morning labs, following protocol.
--- NOTE | 2024-04-20 06:26 | W.PN.VS ---
Addendum entered and electronically signed by Galileo Gonzalez III, MD 04/20/24 10:39:
This patient was seen and examined in collaboration with GRACY Mccarty. I agree with the history and physical exam as well as the assessment and plan.
No complaints
Neck incision clean and dry
Tachycardic this morning to the 120s
Needs better rate control
Restart home meds
Reassess later today
Signed:
Galileo Gonzalez III, MD
[facility] Vascular Surgery
[phone] (cell)
Original Note:
Today's Communication / Plan
-
Patient seen and examined at bedside with Dr. Galileo Gonzalez III, below plan reviewed with attending.
Assessment/Plan
-
POD 2 right CEA
Plan:
-P.o. Cardizem held yesterday due to hypotension, blood pressure stable overnight off Nathanael-Synephrine, will give a.m. beta-angélica and Cardizem for increased heart rate
-Continue home anticoagulation
-Possible discharge later today pending resolution of sinus tachycardia
-Follow-up placed in discharge instructions
Subjective Data
-
Date of Service: April 20, 2024
Patient seen and examined at bedside, offers no complaints. Denies nausea, vomiting, fever, and chills. Denies headache.
Objective Data
-
Vital Signs
Temp Pulse Resp BP Pulse Ox
98.3 F 115 14 114/84 97
04/20/24 04:30 04/20/24 06:00 04/20/24 06:00 04/20/24 06:00 04/19/24 20:05
Intake and Output
04/18/24 04/19/24 04/20/24
06:59 06:59 06:59
Intake Total 1042.5 / 1048.5 756 / 756
Output Total 225 / 225 0 / 0
Balance 817.5 / 823.5 756 / 756
Intake:
Oral fluids 840 / 840 720 / 720
IV fluids (Total) 202.5 / 208.5
Neosynephrine 72.5 / 78.5
Nss 1,000 ml @ 80 mls/hr IV . 80 / 80
[id number] [facility] Rx#:[id number]
normosol 50 / 50
Output:
Urine, Voided 225 / 225 0 / 0
Other:
Number of approximated SMALL 1
amounts of urine
How many times incontinent 1
SMALL amount urine
Lab Results
04/19/24 04:13
04/20/24 05:42
Calcium 8.7 mg/dl (8.4-10.2) 04/20/24 05:42
Physical Exam
-
AAOx3
No tachypnea on room air
Sinus tachycardia noted on monitor, heart rate ranging from 110-120
Abdomen soft nontender
Neck site clean, dry, intact with mild ecchymosis, no drainage noted
Follows all commands
Tongue midline
[2024-04-20 06:53] LABS: Glucose - Point of Care 62 mg/dl (70-99)
[2024-04-20] MEDS: ACTOS PO (07:07)
[2024-04-20] MEDS: NOVOLOG FLEXPEN-MODERATE RESISTANCE SC (07:07)
[2024-04-20] MEDS: AMARYL PO (07:08)
[2024-04-20 07:22] LABS: Glucose - Point of Care 81 mg/dl (70-99)
--- NOTE | 2024-04-20 08:14 | W.PN.INTV ---
Today's Communication / Plan
Recommendations
Keep MAP>65
Goal BG 140�180, given hypoglycemia this AM, lower HS lantus to 12 units, and start 5 units lantus daily starting tomorrow; continue ISS moderate resistance
Continue HD as per nephrology
Postoperative management as per vascular surgery
Up OOB as tolerated
Encourage incentive spirometer
Pain control
Continue ICU level care until deemed stable for downgrade to telemetry vs discharge home per vascular surgery. Distributor Operator service will continue to follow along while patient remains in the ICU and we will sign off once he is downgraded or
discharged home.
Assessment
-
Assessment: 69-year-old male with a past medical history of bilateral carotid artery stenosis, PAD, history of AAA s/p repair, ESRD on HD MWF, history of CAD, A-fib on Eliquis, DM type II, hypertension, history of thrombotic occlusion of left ICA
and hyperlipidemia who presents with right carotid endarterectomy. Patient known to the vascular surgery service with last visit on 02/20/[address] Zeng. Patient has had right-sided progression of his stenosis although he remains asymptomatic.
He has a history of left carotid endarterectomy and he has >75% stenosis however remains asymptomatic and has a significant intramural hematoma throughout. Because of this, left-sided carotid intervention was not recommended however the right side
was recommended to be intervened upon. Risks and benefits and alternatives of revascularization were discussed and patient agreed to a vascular procedure. Today he underwent right carotid endarterectomy with bovine pericardial patch angioplasty.
There were no immediate complications and he was transferred to the ICU postoperatively for further care, and Distributor Operator services consulted for additional management/recommendations.
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
left ICA
Impression:
#Asymptomatic critical right carotid artery stenosis s/p right carotid endarterectomy with bovine pericardial patch angioplasty and intraoperative EEG and SSEP monitoring (POD #2)
#Circulatory shock requiring vasopressors in the setting of chronic hypotension on outpatient midodrine --> off all vasopressors since 04/19/2024
#Acute on chronic anemia
#History of CVA with residual right-sided hemiplegia
#ESRD on HD MWF
#Orthostatic hypotension on midodrine
#History of AAA s/p repair
#DM type II
#Hyperlipidemia
#Hypertension
#History of thrombotic occlusion of left ICA
#Former tobacco smoker (quit smoking approximately 26 years ago, smoked 1-1.5 PPD x 20-25 years)
Plan:
Postoperative surgical intensive care unit monitoring
Supplemental oxygen as needed to maintain SpO2 >90-94%
prn nebulized bronchodilators - not currently bronchospastic
Incentive spirometry encouraged 10x per hour for at least 4 hrs a day
Aspiration precautions
Pain control
Neuro and vascular checks per protocol
Maintain MAP>65 --> patient has been off of Nathanael-Synephrine since late afternoon of 04/19/2024
Replete electrolytes with K>4, Mg>2
Continue with HD as scheduled per nephrology
Maintain euglycemia with goal BG 140-180 and continue with basal�bolus SQ insulin in addition to glimepiride + pioglitazone
Vascular surgery following-correspondence and operative notes reviewed
Transfuse blood products as needed to keep Hb>7g/dL, and plt>50k (given post-operative status)
DVT prophylaxis: Eliquis
Early nutrition
Early mobilization
Continue ICU level care until deemed stable for downgrade to telemetry versus discharge home per vascular surgery. Distributor Operator services will continue to follow along while patient remains in the ICU and we will sign off once he is downgraded or
discharged home.
Total time spent today was 58 minutes for this encounter. Time includes reviewing laboratory test/imaging results, reviewing pertinent medical records, obtaining and reviewing medical history, performing an appropriate exam, ordering medications,
tests and procedures. Time also includes documentation of this encounter, coordinating patient care and communicating with other healthcare professionals. Total time does not include separately billed tests performed on this date of service.
Subjective Dataa
Subjective Data
Date of Service:
Date of Service: April 20, 2024
Chief Complaint: Distributor Operator Follow Up
Subjective:
Patient was seen and evaluated today at bedside. Heart rate 105, BP 120/80. Currently on room air saturating 96%. No acute events reported from overnight.
Review of Systems
General: Other (Negative unless mentioned above)
Objective Data
Data Reviewed
Vital Signs / I&O / Oxygen:
Vital Signs
Temp Pulse Resp BP Pulse Ox
97.4 F 111 12 102/62 96
04/20/24 07:23 04/20/24 09:00 04/20/24 09:00 04/20/24 09:00 04/20/24 04:30
Intake and Output
04/19/24 04/20/24 04/21/24
06:59 06:59 06:59
Intake Total 1042.5 / 1048.5 756 / 756
Output Total 225 / 225 0 / 0
Balance 817.5 / 823.5 756 / 756
SaO2 96
Physical Exam
General: Respiratory Distress (negative), Comfortable, Chills (negative) and Sweats (negative)
HEENT: Anicteric and Other (Linear closed incision along right anterior neck)
Cardiovascular: S1-S2, Rub (negative) and Peripheral Edema (negative)
Respiratory: Clear, Wheeze (negative), Crackles (negative), Rhonchi (negative) and Non-Labored Respirations
GI: Soft, Non Distended, Non Tender and Normal Bowel Sounds
Neurology: Awake, Alert and Tremors (negative)
Skin: Warm, Dry, Cyanosis (negative) and Jaundice (negative)
Labs/Micro/Reports
Lab Data
04/19/24 04:13
04/20/24 05:42
Microbiology
04/18/24 13:59 Nose MRSA Screen - Final
No Methicillin Resistant Staphylococcus aureus isolated.
[2024-04-20] MEDS: ProAmatine 10 MG PO ×2 (08:32→14:24)
[2024-04-20] MEDS: LOPRESSOR 100 MG PO (08:32)
[2024-04-20] MEDS: ELIQUIS 5 MG PO (08:32)
[2024-04-20] MEDS: CARDIZEM CD 120 MG PO (08:32)
[2024-04-20] MEDS: ASPIR LOW (ENTERIC COATED) 81 MG PO (08:32)
[2024-04-20 09:26] LABS: Glucose - Point of Care 150 mg/dl (70-99)
--- NOTE | 2024-04-20 10:39 | W.PN.NEPH.PH ---
Today's Communication / Plan
-
cardiology eval
Assessment/Plan
-
IMP:
s/p Right carotid endarterectomy with bovine pericardial patch angioplasty 04/18
ESRD -MWF through left AVG, at [facility] unit
orthostatic hypotension
Anemia of CKD
HTN
Afib
left CEA
AAA repair
HLD
DM
Plan:
continue midodrine OP dosing
next HD monday
-
-
Date of Service: April 20, 2024
CC / HPI / ROS
-
Chief Complaint:
ESRD
History of Present Illness:
tolerated HD yesterday
rapid HR, tachycardia
BP stable
Review of Systems:
no CP/SOB
Labs
-
Labs:
WBC 15.2 10^3/uL (4.8-10.8) H 04/19/24 04:13
RBC 2.73 10^6/uL (4.70-6.10) L 04/19/24 04:13
Hgb 8.4 g/dL (13.0-18.0) L 04/19/24 04:13
Hct 26.0 % (39.0-52.0) L 04/19/24 04:13
Plt Count 186 10^3/uL (130-400) 04/19/24 04:13
Sodium 133 mmol/L (135-145) L 04/20/24 05:42
Potassium 3.9 mmol/L (3.5-5.1) 04/20/24 05:42
Chloride 96 mmol/L (98-107) L 04/20/24 05:42
Carbon Dioxide 28 mmol/L (22-30) 04/20/24 05:42
BUN 30 mg/dl (9-20) H 04/20/24 05:42
Creatinine 3.8 mg/dL (0.7-1.3) H 04/20/24 05:42
eGFR 16.42 04/20/24 05:42
Glucose 66 mg/dl (70-99) L 04/20/24 05:42
Calcium 8.7 mg/dl (8.4-10.2) 04/20/24 05:42
Physical Exam
-
Vital Signs:
Vital Signs
Temp Pulse Resp BP Pulse Ox
97.4 F 111 12 102/62 96
04/20/24 07:23 04/20/24 09:00 04/20/24 09:00 04/20/24 09:00 04/20/24 04:30
Cardiovascular:: Regular rate and rhythm
Respiratory:: Bilateral: CTA
Lung Excursion:: Normal
Abdomen:: Nontender and Soft
Bowel Sounds:: Normal
Extremity Edema:: None: Bilateral:
[2024-04-20] MEDS: NOVOLOG FLEXPEN-MODERATE RESISTANCE 1 UNITS SC (12:09)
[2024-04-20 12:19] LABS: Glucose - Point of Care 190 mg/dl (70-99)
--- NOTE | 2024-04-20 16:28 | PTCARENOTE ---
Pt discharged to home with and daughter. Neurochecks WNL. VSS. All meds, discharge istructions and followup visit reviewed with pt and . IV and tele monitor d/c'd.
== END 2024-04-20 16:48 | disposition home or self-care (01) | DRG 37 ==
LOC: ICU 06:55
PROVIDERS: Nurse Practitioner; Nurse Practitioner Acute Care; Nurse Practitioner Primary Care; ADMITTING PHYSICIAN Surgery Vascular Surgery; CONSULT PHYSICIAN Internal Medicine; CONSULT PHYSICIAN Internal Medicine Critical Care Medicine; FAMILY PHYSICIAN Internal Medicine
PROC: 03UK0KZ Supplement Right Internal Carotid Artery with Nonautologous Tissue Substitute, Open Approach (ICD-10-PCS; 2024-04-18)
PROC: 03CK0ZZ Extirpation of Matter from Right Internal Carotid Artery, Open Approach (ICD-10-PCS; 2024-04-18)
DX: I65.21 Occlusion and stenosis of right carotid artery (principal); N18.6 End stage renal disease; I12.0 Hypertensive chronic kidney disease with stage 5 chronic kidney disease or end stage renal disease; D62 Acute posthemorrhagic anemia; I69.351 Hemiplegia and hemiparesis following cerebral infarction affecting right dominant side; I25.10 Atherosclerotic heart disease of native coronary artery without angina pectoris; I48.91 Unspecified atrial fibrillation; E11.22 Type 2 diabetes mellitus with diabetic chronic kidney disease; E78.5 Hyperlipidemia, unspecified; Z86.79 Personal history of other diseases of the circulatory system; Z99.2 Dependence on renal dialysis; Z79.01 Long term (current) use of anticoagulants; Z87.891 Personal history of nicotine dependence
CPT/HCPCS: 88304; 88311; 35301; 36415; 71045; 71046; 80048; 82962; 83036; 85025; 85027; 85610; 85730; 86850; 86900; 86901; 87070; 93005; 95938; 95941; 95955; P9047; Q5106

== ENCOUNTER 2024-04-23 19:45 | Emergency (ER) | payer OTHER, SELFPAY ==
[2024-04-23 19:48] VITALS: BP 139/76
[2024-04-23 21:31] VITALS: BMI 28.6
[2024-04-23 21:36] VITALS: BP 142/77
[2024-04-23 22:00] VITALS: BP 141/83
--- NOTE | 2024-04-23 22:05 | ED.GENMED ---
History of Present Illness
General
Chief Complaint: Vascular Symptoms
Source: patient and family
Exam Limitations: none
Time Seen by Provider: 04/23/24 21:37
Nursing documentation reviewed up to this point in time: agreed with
History of Present Illness
History of Present Illness:
69-year-old male with extensive medical history as noted significant for ESRD on dialysis, CAD, atrial fibrillation on Eliquis, carotid stenosis status post endarterectomy; he presents today to the emergency room for evaluation of right neck
swelling status post endarterectomy. Patient had right sided endarterectomy for critical stenosis with Dr. Zeng on 04/18/2024. Was discharged on 04/20/2024. This afternoon family noted some small amount of increased swelling and some increased
bruising which prompted trip to the ER. Patient denies any pain. He denies any breathing difficulties. He denies any dizziness or any other complaints.
Review of Systems
Review of Systems
All Other Systems: ROS reviewed and negative except as documented in HPI and ROS
Constitutional: Denies fever
Respiratory: Denies trouble breathing
Cardiac: Denies chest pain
ABD/GI: Denies abdominal pain
Musculoskeletal: Reports other (Neck swelling/bruising)
Neurological: Denies dizzy, headache, weakness or numbness
Phy Exam
Physical Exam
Physical Exam:
General: Awake, alert, oriented x3; no acute distress
Head: Normocephalic, atraumatic
Eyes: Conjunctiva normal, pupils equal round and reactive to light bilateral
Throat: Airway intact, handling secretions, midline uvula
Neck: Trachea midline, supple without meningismus; patient has well-healing surgical incision lateral right neck with surrounding ecchymosis and some minor swelling but no pulsatile mass or large hematoma appreciated (pictured below)
Lungs: Breathing comfortably no distress
Heart: Tachycardia with regular rhythm
Neuro: No gross deficits
Extremities: Warm and well-perfused
Scores
Heart Failure Risk
Heart Failure Risk Score: Not Applicable
Heart Score for Chest Pain Patients
STEMI patient?: Not applicable
Withdrawal Assessment of Alcohol
Withdrawal Assessment Completed?: Not applicable
Course
Orders/Labs/Results
Orders:
Orders
04/23/24 21:57
CT Head & Neck Angio W/wo IV Urgent
Comment:
Reason For Exam: right neck swelling s/p carotid endarterectomy
04/23/24 22:03
Metoprolol [Lopressor] 100 mg PO NOW STA
Midodrine [ProAmatine] 10 mg PO NOW STA
04/23/24 22:16
Basic Metabolic Panel Urgent
Comment: NO K
Complete Blood Count/With Diff Urgent
04/23/24 23:00
Insulin Glargine Lantus [Lantus] 15 units Subcutaneous Insulin Syringe [Syringe-Insulin] 0 unit SC ONCE
Rosuvastatin Calcium [Crestor] 40 mg PO ONCE ONE
04/23/24 23:32
Dextrose 50%-Water [Dextrose 50% Syringe] 25 grams .ROUTE .STK-MED ONE
04/23/24 23:33
Dextrose 50%-Water [Dextrose 50% Syringe] 12.5 grams IV NOW STA
Abnormal Lab Results
04/23/24 04/23/24 04/23/24
22:16 22:48 23:07
RBC 2.99 L 10^6/uL
(4.70-6.10)
Hgb 9.3 L g/dL
(13.0-18.0)
Hct 29.3 L %
(39.0-52.0)
MCV 98.0 H fL
(80.0-94.0)
MCH 31.1 H pg
(27.0-31.0)
MCHC 31.7 L g/dL
(33.0-37.0)
RDW 17.7 H %
(11.5-14.5)
Absolute Monos (auto) 0.9 H 10^3/uL
(0.1-0.6)
Monocytes % 12.4 H %
(1.7-9.3)
Chloride 96 L mmol/L
(98-107)
Carbon Dioxide 33 H mmol/L
(22-30)
BUN 45 H mg/dl
(9-20)
Creatinine 4.7 H* mg/dL
(0.7-1.3)
POC Glucose 60 L mg/dl 62 L mg/dl
(70-99) (70-99)
04/23/24
23:31
RBC
Hgb
Hct
MCV
MCH
MCHC
RDW
Absolute Monos (auto)
Monocytes %
Chloride
Carbon Dioxide
BUN
Creatinine
POC Glucose 64 L mg/dl
(70-99)
04/23/24 22:16
04/23/24 22:16
Vital Signs
Initial and Last Documented VS:
Initial Vital Signs
Temp Pulse Resp BP Pulse Ox
36.7 C 105 16 139/76 100
04/23/24 19:48 04/23/24 19:48 04/23/24 19:48 04/23/24 19:48 04/23/24 19:48
Last Documented Vital Signs
Temp Pulse Resp BP Pulse Ox
36.7 C 91 16 159/78 99
04/23/24 19:48 04/23/24 23:00 04/23/24 23:00 04/23/24 23:00 04/23/24 21:33
MDM/Problems Addressed
Differential Diagnosis Includes:
Postoperative swelling, hematoma/leak
MDM/Problems Addressed:
69-year-old male who had recent carotid endarterectomy with Dr. Zeng presents with some localized swelling and bruising postoperatively. No pain or any other complaints. He is on Eliquis and aspirin. Vitals and exam as above. Case discussed with
vascular surgery will plan to send for a CTA of the head and neck. Check basic screening labs. Given ESRD on dialysis I did discuss the case with nephrology pending contrast-enhanced study�patient had full dialysis yesterday and is scheduled for
dialysis tomorrow at 2 PM, can wait for regularly scheduled dialysis after contrast-enhanced study this evening.
requesting patient's nighttime medications�these were ordered per his medication list.
Labs reviewed: CBC shows stable anemia, CMP shows stable ESRD. CTA shows postoperative changes but no focal collection, no pseudoaneurysm or any other acute postoperative complications. Reviewed with vascular surgery suspect findings are typical
postoperative edema and ecchymosis. Stable for discharge to follow-up in the office. Spoke to patient and about results and plan. They feel comfortable with this. All questions answered.
Chronic conditions affecting care:
ESRD on dialysis fracture planning for contrast enhanced study
*Radiology
Radiology exam reviewed: radiology read reviewed
*Pulse Oximetry
Patient hypoxic: no
*Critical Care Note
Total Time (30-74mins, 75-104mins- exclusive of procedures): Not Applicable
Data Reviewed
Review of Other/Old Records Reveals: Labs, Records, Radiology Studies and Discharge Summary
Source: patient, records and family
Patient Management
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
ED Attending Note
-
Portions of this chart may have been created with voice recognition software.� Occasional wrong word or��sound alike� substitutions may have occurred due to the inherent limitations of voice recognition software.
Discharge Plan
Departure
Patient Disposition: Home (Routine Discharge)
Date of Disposition: 04/23/24
Time of Disposition: 23:38
Patient with high blood pressure during this ER visit?: Yes
Discharge Problem:
Postoperative ecchymosis
Instructions: Taking care of bruises
Prescriptions:
No Action
aspirin 81 MG tablet,delayed release (DR/EC)
81 mg PO DAILY
diltiazem HCl 120 MG capsule,extended release 24hr
120 mg PO DAILY
midodrine 10 MG tablet
10 mg PO TID
Eliquis 5 MG tablet
5 mg PO BID
glimepiride 2 mg Tablet
4 mg PO BID
metoprolol tartrate [Lopressor] 100 mg Tablet
100 mg PO BID
pioglitazone 15 mg Tablet
15 mg PO DAILY
rosuvastatin 40 mg Tablet
40 mg PO HS
insulin degludec [Tresiba FlexTouch U-100] 100 unit/mL (3 mL) Insulin Pen
15 unit SC HS
Referrals:
Rosetta Lino MD [Family Provider] -
Quincy Zeng MD [Active] - Keep scheduled appt
Activity Restrictions/Additional Instructions:
Thank you for visiting the Emergency Department at [facility].
1. Please schedule a follow up appointment as directed. Call first thing tomorrow morning to make an appointment.
2. If indicated, please take your medications as instructed and indicated on discharge paperwork.
3. If any of your symptoms do not improve, or persist, or become more severe within 6-12 hours, please return to the emergency department for further care.
4. Please return to the emergency department if you develop a headache, neck pain/stiffness, fever greater than 100.4F, chest pain, shortness of breath, persistent nausea, vomiting, slurred speech, difficulty walking, numbness/tingling, weakness,
signs of infection or any other symptoms that are worrisome to you.
Please call [phone] if you have any questions.
Interventions
Interventions:
*Risk Screen - Suicide Last Done: 04/23/24 21:31
*General Assessment Last Done: 04/23/24 21:31
*Neglect/Abuse Screening Last Done: 04/23/24 21:31
*ED- Fall Risk Assessment Last Done: 04/23/24 21:31
*ED COVID-19 Vaccine History Last Done: 04/23/24 21:31
ED- Cardiac Assessment Last Done: 04/23/24 21:31
ED- Pulmonary Assessment Last Done: 04/23/24 21:31
ED-Peripheral Vascular Assessment Last Done: 04/23/24 21:31
ED-Skin Assessment Last Done: 04/23/24 21:31
Discharge Date and Time
Print Language: URUGUAYAN
[2024-04-23 22:15] VITALS: BP 158/83
[2024-04-23] MEDS: ProAmatine 10 MG PO (22:16)
[2024-04-23] MEDS: LOPRESSOR 100 MG PO (22:16)
[2024-04-23 22:23] LABS: % Eosinophils 3.8 % (0-6); % Immature Granulocytes 0.5 % (0-0.5); % Monocytes 12.4 % (1.7-9.3); % Neutrophils 55.3 % (42.2-75.2); Absolute Basophils 0.1 10^3/uL (0-0.2); Absolute Eosinophils 0.3 10^3/uL (0-0.7); Absolute Monocytes 0.9 10^3/uL (0.1-0.6); Absolute Neutrophils 4.1 10^3/uL (1.4-6.5); Hematocrit 29.3 % (39.0-52.0); Hemoglobin 9.3 g/dL (13.0-18.0); Mean Corp Hgb Conc. 31.7 g/dL (33.0-37.0); Mean Corpuscular Hgb 31.1 pg (27.0-31.0); Mean Platelet Volume 10.3 fL (7.4-10.4); Nucleated Red Blood Cells % 0 % (-); Platelet Count 173 10^3/uL (130-400); Red Blood Cell Count 2.99 10^6/uL (4.70-6.10); Red Cell Dist. Width 17.7 % (11.5-14.5); White Blood Cell Count 7.4 10^3/uL (4.8-10.8)
[2024-04-23] MEDS: CRESTOR 40 MG PO (22:44)
[2024-04-23 22:49] LABS: Blood Urea Nitrogen 45 mg/dl (9-20); Calcium 8.4 mg/dl (8.4-10.2); Carbon Dioxide 33 mmol/L (22-30); Chloride 96 mmol/L (98-107); Estimated Creatinine Clearance 13 ml/min; Glucose 74 mg/dl (70-99); Sodium 138 mmol/L (135-145); eGFR 12.72
[2024-04-23 22:50] LABS: Glucose - Point of Care 60 mg/dl (70-99)
[2024-04-23] MEDS: LANTUS 0.15 UNITS SC (22:55)
[2024-04-23 23:00] VITALS: BP 159/78
[2024-04-23 23:09] LABS: Glucose - Point of Care 62 mg/dl (70-99)
[2024-04-23 23:32] LABS: Glucose - Point of Care 64 mg/dl (70-99)
[2024-04-23] MEDS: DEXTROSE 50% SYRINGE 12.5 GRAMS IV (23:34)
[2024-04-23 23:51] LABS: Glucose - Point of Care 93 mg/dl (70-99)
== END 2024-04-24 00:03 | disposition home or self-care (01) ==
LOC: EMR 19:45
PROVIDERS: EMERGENCY PHYSICIAN Emergency Medicine; FAMILY PHYSICIAN Internal Medicine
DX: I97.638 Postprocedural hematoma of a circulatory system organ or structure following other circulatory system procedure (principal); R22.1 Localized swelling, mass and lump, neck; Y83.8 Other surgical procedures as the cause of abnormal reaction of the patient, or of later complication, without mention of misadventure at the time of the procedure; I12.0 Hypertensive chronic kidney disease with stage 5 chronic kidney disease or end stage renal disease; E11.22 Type 2 diabetes mellitus with diabetic chronic kidney disease; N18.6 End stage renal disease; Z99.2 Dependence on renal dialysis; I25.10 Atherosclerotic heart disease of native coronary artery without angina pectoris; I48.91 Unspecified atrial fibrillation; D64.9 Anemia, unspecified; I69.321 Dysphasia following cerebral infarction; I69.351 Hemiplegia and hemiparesis following cerebral infarction affecting right dominant side; E78.5 Hyperlipidemia, unspecified; E11.36 Type 2 diabetes mellitus with diabetic cataract; Z79.01 Long term (current) use of anticoagulants; Z91.048 Other nonmedicinal substance allergy status
CPT/HCPCS: 99284; 96374; 96372; 70496; 70498; 80048; 82962; 85025; Q9967

== ENCOUNTER → 2024-06-04 09:08 | Outpatient (REF) | payer OTHER, SELFPAY | LOC: RAD 09:08 | PROVIDERS: ATTENDING PHYSICIAN Physician Assistant; FAMILY PHYSICIAN Internal Medicine | DX: I65.22 Occlusion and stenosis of left carotid artery (principal) | CPT/HCPCS: 93880 ==

== ENCOUNTER 2024-09-25 19:07 | Inpatient (IN) | payer OTHER, SELFPAY ==
[2024-09-25 16:08] VITALS: BP 149/73
--- NOTE | 2024-09-25 17:09 | ED.GENMED ---
History of Present Illness
General
Chief Complaint: Vascular Symptoms
Source: patient, spouse and family
Time Seen by Provider: 09/25/24 16:59
History of Present Illness
History of Present Illness:
69-year-old male with past medical history of previous CVA, AAA, A-fib, peripheral arterial and vascular disease, CKD (dialysis Monday, Monday, Monday), insulin-dependent diabetes presenting to the ER for evaluation after he went to go to
dialysis today and they noticed a small wound at the proximalmost portion of the left extremity fistula and recommended the patient come to the ER for further evaluation, patient's spouse reports that Dr. Zeng is reportedly aware of this. Patient is
without fevers but does endorse some slight pain with this. Last dialysis session was this past Monday which patient reports was a full session, did not receive dialysis today. Patient denies any fevers, chills, rigors and is without any other
concerns at this time.
Past History
Past History
ED Past Medical History: Arrthythmia, CAD, CVA, HTN, Hypercholesterolemia, IDDM and Renal failure
ED Past Surgical History: Appendectomy and Other
Social History
Tobacco: Non-smoker
Alcohol: Occasional
Drug: None
Personal:
Living: with family
Review of Systems
Review of Systems
All Other Systems: ROS reviewed and negative except as documented in HPI and ROS
Phy Exam
Physical Exam
Physical Exam:
GENERAL: Alert , in no apparent distress
EYE: conjunctiva clear
Head: Normocephalic atraumatic
NECK: Supple,
ENT: mmm.
LUNGS: no acute respiratory distress
NEUROLOGICAL: Alert and oriented
SKIN: Warm and dry, Left upper extremity AV fistula noted with palpable thrill. At the proximalmost portion of the fistula there is an approximate 7 to 8 mm round open wound with slight erythema along the borders but dry and without any purulent
drainage or bleeding
MUSCULOSKELETAL: well perfused.
PSYCH: Normal and appropriate interaction.
Scores
Heart Failure Risk
Heart Failure Risk Score: Not Applicable
Heart Score for Chest Pain Patients
STEMI patient?: Not applicable
Withdrawal Assessment of Alcohol
Withdrawal Assessment Completed?: Not applicable
Course
Orders/Labs/Results
Orders:
Orders
09/25/24 17:22
Basic Metabolic Panel Urgent
Complete Blood Count/With Diff Urgent
PTT Urgent
Prothrombin Time Urgent
Vital Signs
Initial and Last Documented VS:
Initial Vital Signs
Temp Pulse Resp BP Pulse Ox
98.2 F 85 16 149/73 100
09/25/24 16:08 09/25/24 16:08 09/25/24 16:08 09/25/24 16:08 09/25/24 16:08
Last Documented Vital Signs
Temp Pulse Resp BP Pulse Ox
98.2 F 85 16 149/73 100
09/25/24 16:08 09/25/24 16:08 09/25/24 16:08 09/25/24 16:08 09/25/24 17:13
MDM/Problems Addressed
Differential Diagnosis Includes:
Superficial wound
Cellulitis
Abscess
Fistula complication
MDM/Problems Addressed:
69-year-old male presenting to the ER for evaluation at the request of his dialysis center due to a wound at the proximalmost portion of his left AV fistula. Will consult with vascular surgery team to help with treatment planning as well as
disposition. Patient remains hemodynamically stable
Chronic conditions affecting care: Kidney disease
Acute Exacerbation and/or Progression of Chronic Illness: Kidney disease
*Pulse Oximetry
SaO2: 100
Oxygen Mode of Delivery: Room air
Patient hypoxic: no
*Critical Care Note
Total Time (30-74mins, 75-104mins- exclusive of procedures): Not Applicable
Data Reviewed
Review of Other/Old Records Reveals: Records
Patient Management
Discussion with other providers: Hospitalist and Stone [employer]
Escalation/DeEscalation of care consider admission/obs:
Images of patient's wound were sent to vascular surgery via Lorenzo text, given the location of the wound as well as potential risk for bleeding/rupture patient was recommended to be admitted to hospitalist service with vascular team in consult.
Hospitalist team notified and accepts for admission.
ED Attending Note
-
Portions of this chart may have been created with voice recognition software.� Occasional wrong word or��sound alike� substitutions may have occurred due to the inherent limitations of voice recognition software.
Discharge Plan
Departure
Patient Disposition: Admit
Date of Disposition: 09/25/24
Time of Disposition: 17:19
Presentation/result/management discussed w/ accepting MD/DO: Hospitalist
Discharge Problem:
Complication of arteriovenous dialysis fistula
Prescriptions:
No Action
aspirin 81 MG tablet,delayed release (DR/EC)
81 mg PO DAILY
diltiazem HCl 120 MG capsule,extended release 24hr
120 mg PO DAILY
midodrine 10 MG tablet
10 mg PO TID
Eliquis 5 MG tablet
5 mg PO BID
glimepiride 2 mg Tablet
4 mg PO BID
metoprolol tartrate [Lopressor] 100 mg Tablet
100 mg PO BID
pioglitazone 15 mg Tablet
15 mg PO DAILY
rosuvastatin 40 mg Tablet
40 mg PO HS
insulin degludec [Tresiba FlexTouch U-100] 100 unit/mL (3 mL) Insulin Pen
15 unit SC HS
Interventions
Interventions:
*Risk Screen - Suicide Last Done: 09/25/24 16:08
*Neglect/Abuse Screening Last Done: 09/25/24 16:08
*ED- Fall Risk Assessment Last Done: 09/25/24 16:08
Discharge Date and Time
Print Language: THAI
--- NOTE | 2024-09-25 17:22 | EDRN ---
Dale Worthington PA in to speak w/ pt. Pt will be admitted.
--- NOTE | 2024-09-25 17:27 | HPS.HSE ---
Addendum entered and electronically signed by GRACY Gordon 09/25/24 18:08:
DM2
-hold glimepiride 4 mg twice daily, pioglitazone 15 mg daily
Original Note:
Family Physician
-
Family Physician:
Chief Complaint
-
Left upper extremity dialysis fistula wound
History of Present Illness
69-year-old male who went to dialysis today where they noticed a small wound at the left extremity fistula and was referred to ER for evaluation. The family states that the wound has likely been there since Monday. The patient does report some
pain at the local site however denies distal pain or numbness, fever, chills, erythema. His last dialysis session was Monday 2 days ago full session he receives dialysis Monday. He denies headache, fever, chills, chest pain,
palpitations, cough, shortness of breath, abdominal pain, nausea, vomiting, diarrhea
He has past medical history ESRD Monday dialysis, orthostatic hypotension, HTN, anemia of CKD, DM 2, A-fib, CVA with residual right hemiplegia, AAA repair, left CEA status post thrombotic occlusion, status post right carotid
enterectomy with bovine pericardial patch, former smoker
Medical History
Past Medical History
Past Medical History: Reports Other
Additional Past Medical History:
s/p Right carotid endarterectomy with bovine pericardial patch angioplasty 04/18
ESRD -MWF through left AVG, at [facility] unit
orthostatic hypotension
Anemia of CKD
History CVA with residual right hemiplegia post cardioversion
HTN
Afib
left CEA post occlusion
AAA repair
HLD
DM
Former smoker quit smoking 27 years ago prior 2024 years 1 to 1.5 pack/day
Past Surgical History: Reports Other
Additional Past Surgical History:
Left upper extremity AV fistula
left CEA post occlusion
s/p Right carotid endarterectomy with bovine pericardial patch angioplasty 04/18
Right upper extremity fistula creation
Appendectomy A-fib cardioversion
AAA repair 2019 with poststroke y
Social History
Tobacco: Former Smoker (Quit 26 years ago)
Alcohol: None
Drug: None
Personal:
Living: With Family ()
Employment: Retired
Family History
Family History: Not pertinent
Allergies / Home Medications
Allergies reflects when Allergies were last updated in [employer].
Home Medications with original date entered in [employer]
Allergy/Medication List:
Allergies
Allergy/AdvReac Type Severity Reaction Status Date / Time
adhesive Allergy Shortness Verified 09/25/24 16:08
of Breath
Home Medications
apixaban 5 mg tablet (Eliquis) 5 mg PO BID Blood Clot Prevention/Tx 11/02/20
diltiazem HCl 120 mg capsule,extended release 24 hr 120 mg PO DAILY Heart Disease/Condition 11/02/20
midodrine 10 mg tablet 10 mg PO MOWEFR take before dialysis 11/02/20
insulin degludec 100 unit/mL (3 mL) subcutaneous pen (Tresiba FlexTouch U-100 insulin) 15 unit SC HS Diabetes 04/09/24
pioglitazone 15 mg tablet 15 mg PO DAILY Diabetes 04/09/24
rosuvastatin 40 mg tablet 40 mg PO HS High Cholesterol 04/09/24
glimepiride 4 mg tablet 4 mg PO BID 09/25/24
metoprolol succinate 100 mg tablet,extended release 24 hr (Toprol XL) 100 mg PO BID 09/25/24
Review of Systems
-
History Source: Patient and Family ( and daughter at bedside)
A 12 point ROS was completed and negative except as noted: Yes
Constitutional: Denies Fever or Chills
EENT: Denies Sore Throat or Runny Nose
Respiratory: Denies Cough or Trouble Breathing
Cardiac: Denies Chest Pain, Diaphoresis, Palpitations or Syncope
Abdomen/GI: Denies Abdominal Pain, Nausea, Vomiting, Diarrhea, Constipated or Bloody Stools
: Denies Dysuria, Frequency, Flank Pain or Incontinence
Musculoskeletal: Denies Joint Pain or Edema
Skin: Reports Other (Ulceration at left upper extremity fistula); Denies Itching or Rash
Neurological: Denies Dizzy, Headache or Weakness
Endocrine: Reports No Symptoms
Hematologic/Lymphatic: Reports No Symptoms
Psych: Reports Calm
Physical Exam
Vital Signs
Vital Signs
Temp Pulse Resp BP Pulse Ox
98.2 F 85 16 149/73 100
09/25/24 16:08 09/25/24 16:08 09/25/24 16:08 09/25/24 16:08 09/25/24 17:13
Physical Exam
General: Comfortable, Conversant and Pain; No Fever or Chills
HEENT: NormoCephalic, Anicteric, Moist mucous membranes, PERRLA, [place] Conjunctivae and No Ptosis
Respiratory: Clear; No Wheezes, Rales or Rhonchi
Cardiac: S1/S2 and Regular Rhythm; No Murmur, Rub, Gallop or Peripheral Edema
GI: Soft, Non Tender, Non Distended, Normal Bowel Sounds and No Hepatosplenomegaly
Rectal: Deferred by Provider
Genito-urinary: Deferred by me
Musculoskeletal: No Clubbing, No Cyanosis and No Edema
Skin: Warm, Dry and Other (Left upper extremity dialysis AV fistula open wound pea size no surrounding erythema positive thrill); No Rash
Neuro: AO x 3, No Motor Deficits, Nonfocal/grossly intact, Cranial Nerves Intact and No Sensory Deficits; No Slurred Speech, Facial Droop, Tremors or Sedated
Psych: Calm
Impression/Plan
-
Impression/plan:
Admit to telemetry
#Left upper extremity dialysis fistula wound
- Consult Dr. Zeng
-Hold eliquis last dose this am
Labs pending on admission
#ESRD -MWF through left AVG, at [facility] unit since 2019
- Consult nephro
#Orthostatic hypotension/HTN
BP 149/73
- Continue midodrine
- Continue Toprol-XL 100 mg twice daily with hold parameters
#Anemia of CKD
#DM 2
Accu-Cheks with SSI, check HgbA1c
Patient on Tresiba 15 units SQ at bedtime
Continue glimepiride 4 mg twice daily, pioglitazone 15 mg daily
#Afib
-Continue diltiazem with hold parameters
-Hold Eliquis
#History CVA with residual right hemiplegia
Continue rosuvastatin
#HLD
- Continue rosuvastatin
#AAA repair
#Left CEA status post thrombotic occlusion
#s/p Right carotid endarterectomy with bovine pericardial patch angioplasty 04/18
#Former smoker quit smoking 27 years ago prior 2024 years 1 to 1.5 pack/day
DVT prophylaxis
Full code
--- NOTE | 2024-09-25 17:35 | EDRN ---
Feliciano García SUPERINTENDENT OF GENERATION was in to see pt.
[2024-09-25 17:40] VITALS: BMI 31.3
--- NOTE | 2024-09-25 18:03 | W.PN.UPDATE ---
Update Note
Progress Note Update
I saw and examined the patient.
The CONSULTING TECHNICAL DIRECTOR or PA's note was reviewed and I agree with the note.
Comment: 69-year-old male who presents with a left upper extremity fistula superficial ulcer.
149/73, 85, 16, 98.2 �F, 100% RA
Gen: NAD, AAOx3.
Eyes: EOMI, PERRLA, no scleral icterus.
Neck: supple.
CV: irreg/irreg, +S1/S2, no m/r/g.
Resp: CTAB, no rales, wheezes, or rhonchi.
Skin: No rashes. 1cm LUE ulcer over AVF without discharge
Neuro: CN 2-12 intact, non-focal.
Psych: Normal mood and affect.
Labs pending, no imaging
LUE fistula:
-vascular to see
-hold home Eliquis for possible surgical intervention
ESRD:
-last HD 09/23/24
-c/s renal
-note, labs pending. Will place on tele until K results.
Other problems:
Anemia of chronic renal disease
DM2: cont Lantus, SSI/accuchecks
Essential hypertension: cont BB
Orthostatic hypotension: cont midodrine
Afib (presumed permanent): Holding Eliquis as above. Cont Cardizem.
h/o CVA: Holding Eliquis as above. Cont statin.
[2024-09-25 18:06] VITALS: BP 128/67
[2024-09-25 18:31] LABS: Hematocrit 34.7 % (39.0-52.0); Hemoglobin 11.5 g/dL (13.0-18.0); Mean Corp Hgb Conc. 33.1 g/dL (33.0-37.0); Mean Corpuscular Volume 91.1 fL (80.0-94.0); Nucleated Red Blood Cells % 0 % (-); Platelet Count 149 10^3/uL (130-400); Red Cell Dist. Width 16.5 % (11.5-14.5)
[2024-09-25 18:42] LABS: APTT 36.1 Sec (23.4-35.0); INR 1.56; PT 19.2 Sec (11.4-14.6)
[2024-09-25 19:03] LABS: Blood Urea Nitrogen 43 mg/dl (9-20); Calcium 9.1 mg/dl (8.4-10.2); Carbon Dioxide 26 mmol/L (22-30); Chloride 100 mmol/L (98-107); Estimated Creatinine Clearance 13 ml/min; Glucose 102 mg/dl (70-99); Sodium 137 mmol/L (135-145); eGFR 11.53
[2024-09-25 19:45] VITALS: BP 141/85
[2024-09-25 20:25] VITALS: BP 147/62
[2024-09-25 20:26] VITALS: BMI 30.6
[2024-09-25 20:59] LABS: ALT (SGPT) < 10 U/L (0-50); AST (SGOT) 19 U/L (17-59); Albumin 4.1 g/dl (3.5-5.0); Alkaline Phosphatase 50 U/L (38-126); Blood Urea Nitrogen 43 mg/dl (9-20); Calcium 9.1 mg/dl (8.4-10.2); Carbon Dioxide 31 mmol/L (22-30); Chloride 100 mmol/L (98-107); Estimated Creatinine Clearance 12 ml/min; Glucose 82 mg/dl (70-99); Potassium 3.8 mmol/L (3.5-5.1); Sodium 139 mmol/L (135-145); Total Protein 7.1 g/dl (6.3-8.2); eGFR 10.77
--- NOTE | 2024-09-25 21:00 | PTCARENOTE ---
Pt received from ED via stretcher at 2044. Pt pleasant, AAOx3, VSS, and able to ambulate into room. Pt receptive to room and call baltazar. Pt bed in lowest position and call baltazar within reach. Pt educated on importance of call baltazar usage, as pt [place]ian
speaking, pt relays somewhat understanding and cooperation. Bed alarm placed and plugged in. Will continue with current plan of care.
[2024-09-25 21:05] VITALS: BMI 30.6
[2024-09-25] MEDS: TOPROL XL 100 MG PO (21:12)
[2024-09-25 21:30] LABS: Glucose - Point of Care 144 mg/dl (70-99)
--- NOTE | 2024-09-25 21:33 | W.PN.UPDATE ---
Update Note
Progress Note Update
per Pharmacy recommendations would need lower dose of crestor due to esrd.
will defer to attending
[2024-09-25] MEDS: CRESTOR 40 MG PO (22:20)
[2024-09-25] MEDS: LANTUS 0.15 UNITS SC (22:20)
[2024-09-25 23:00] VITALS: BP 129/68
[2024-09-26 03:00] VITALS: BP 141/67
[2024-09-26 04:12] VITALS: BMI 30.8
[2024-09-26 07:00] VITALS: BP 146/88
--- NOTE | 2024-09-26 07:51 | CON.VAS ---
Addendum entered and electronically signed by Quincy Zeng MD 09/26/24 09:37:
Seen and examined with JENNY Matute. Agree with findings as noted below. Patient known to me from the outpatient setting status post carotid revascularization. Also I follow him for PAD. He has a history of abdominal aortic aneurysm repair prior to
my meeting him. End-stage renal disease on hemodialysis. He had prior fistula in the left upper extremity performed by me as well. Yesterday at dialysis there was some concern about ulceration over the fistula and he was sent to the emergency
room. In the emergency room the appearance of the fistula (picture reviewed) appeared to have this ulceration which appeared somewhat raw. Therefore had the patient admitted for possible revision today. Patient is without complaints himself. His
was on the phone as well and communicated some of the history. He did not receive hemodialysis yesterday. On exam the fistula has an excellent thrill in the left upper extremity. The ulceration area is actually dried now and scabbed. There
does not appear to be an active ulceration per se in the sense that it scabbed now.
I discussed with the patient and his that revision would involve excising that ulceration area and closing that, and possibly if involving the vein as well would require excision of a portion of the vein and rerouting with a graft. The latter
procedure would likely require catheter placement because the fistula would not be usable for some time. The former procedure if able to get away with just excision of the ulcerated portion may allow continued access of the fistula depending on how
much of the skin needed to be excised. However, given that this is dried and scabbed, I think it is not unreasonable to keep an eye on it to see if it will heal over now. Therefore we will place nonadherent dressings and observe in the hospital.
Should be okay to achieve hemodialysis through the fistula, but would definitively avoid any puncture in the vicinity of the ulceration. This plan has been communicated to the hemodialysis team. We will continue to follow.
Original Note:
Consultation
Consultation Request
Date/Time Consultation Performed: 09/26/2024 0800
Requesting Provider: Hospitalist
Performing Provider: Chantaljomar Matute NP-C for Quincy Zeng M.D.
Reason for Consultation: Ulceration over left upper extremity AV fistula
Medical History
-
Chief Complaint: Ulceration over left upper extremity AV fistula
History of Present Illness:
This is a 69-year-old male with significant past medical history for hypertension, peripheral arterial disease, AAA with repair, ESRD on HD, hypertension, atrial fibrillation, orthostatic hypotension, diabetes, stroke, and CAD presented to outside
hospital on 09/25/2024 from HD facility with area of ulceration over AV fistula. Patient's was on phone and contributing to HPI. She notes that patient was not able to have successful HD session yesterday as they did not want to access fistula
and sent him to ED. He offers no other complaints other than small sore over fistula.
Past Medical History
Past Medical History: Arrhythmias (Atrial fibrillation), CAD, CVA, HTN, IDDM, Renal Failure (ESRD (MWF)) and Other (AAA, hyperlipidemia, orthostatic hypotension, anemia of chronic kidney disease)
Past Surgical History: Other (Left upper extremity AV fistula creation, left carotid endarterectomy, right carotid endarterectomy, right upper extremity AV fistula creation, appendectomy, cardioversion, AAA repair)
Social History
Tobacco: Former Smoker (Quit 26 years ago)
Alcohol: None
Drug: None
Personal:
Living: With Family
Allergies / Home Medications
Allergy/AdvReac Type Severity Reaction Status Date / Time
adhesive Allergy Shortness Verified 09/25/24 16:08
of Breath
�Medication �Instructions �Recorded �Confirmed �Type
apixaban 5 mg tablet (Eliquis) 5 mg PO BID Blood Clot 11/02/20 09/25/24 History
Prevention/Tx
diltiazem HCl 120 mg 120 mg PO DAILY Heart 11/02/20 09/25/24 History
capsule,extended release 24 hr Disease/Condition
midodrine 10 mg tablet 10 mg PO MOWEFR take before 11/02/20 09/25/24 History
dialysis
insulin degludec 100 unit/mL (3 15 unit SC HS Diabetes 04/09/24 09/25/24 History
mL) subcutaneous pen (Tresiba
FlexTouch U-100 insulin)
pioglitazone 15 mg tablet 15 mg PO DAILY Diabetes 04/09/24 09/25/24 History
rosuvastatin 40 mg tablet 40 mg PO HS High Cholesterol 04/09/24 09/25/24 History
glimepiride 4 mg tablet 4 mg PO BID 09/25/24 09/25/24 History
metoprolol succinate 100 mg 100 mg PO BID 09/25/24 09/25/24 History
tablet,extended release 24 hr
(Toprol XL)
Review of Systems
-
History Source: Patient
Constitutional: Reports No Symptoms
EENT: Reports No Symptoms
Respiratory: Reports No Symptoms
Cardiac: Reports No Symptoms
Abdomen/GI: Reports No Symptoms
: Reports No Symptoms
Musculoskeletal: Reports No Symptoms
Skin: Reports Other (Small area of dry ulcers/scabbing over upper area of left upper extremity AV fistula)
Neurological: Reports No Symptoms
Endocrine: Reports No Symptoms
Physical Exam
Vital Signs
Temp Pulse Resp BP Pulse Ox
98.2 F 95 20 141/67 96
09/26/24 03:00 09/26/24 03:00 09/26/24 03:00 09/26/24 03:00 09/26/24 03:00
Physical Exam
General: No Apparent Distress and Comfortable
HEENT: Normocephalic, Anicteric and Atraumatic
Respiratory: Non Labored Respirations
Cardiac: Negative JVD
GI: Soft, Non Tender and Non Distended
Musculoskeletal: No Edema
Skin: Warm, Dry and Other (Left upper extremity AV fistula with a small area of dry ulcer/scabbing over upper area of fistula, no evidence of active bleeding, no evidence of aneurysmal dilatation, palpable thrill, left hand warm)
Neuro: AO x 3
Assessment / Plan
-
Assessment: 69-year-old male with left upper extremity AV fistula with small area of ulceration/wound over upper area of fistula.
Plan:
Left extremity AV fistula with ulceration that appears dry, no evidence of aneurysmal dilatation. Given how dry ulcer is can attempt HD today but only if HD nurse confident that fistula can be accessed nowhere near ulceration. Would then observe
for the next 24 hours and possibly patient could be discharged tomorrow. Will keep n.p.o. in case HD nurses are not confident of access away from ulcer, in which case we would take to OR today for excision of ulcerated skin and AV fistula revision.
Plan communicated to cotton agent and hospitalist via [place] text.
I performed this shared service with the attending. I evaluated the patient [id number] and have entered clinical documentation as shown in the encounter note. I performed the following component(s): history and physical exam. Note that medical
decision making is not final until attested by vascular attending.
--- NOTE | 2024-09-26 07:58 | W.CON.NEPH ---
Consultation
-
Date/Time Consultation Requested: 09/25/2024 7:00 PM
Date/Time Consultation Performed: 09/26/2024 8:00 AM
Requesting Provider: Dr. Lomas
Performing Provider: Dr. Garcia
Reason for Consultation: ESRD
Medical History
-
Chief Complaint: ESRD
History of Present Illness:
69y/o M with PMH of PAD, AAA repair, ESRD on HD [facility], left carotid CEA, HTN, Afib on diltiazem ELiquis, BB,orhtostatic hypotension on midodrine, DM on glimepride, insulin, Pioglitazone, HLD on statin who presented to ER
with infected ulceration of his AVF. Nephrology was consulted for end-stage renal disease management.
Past Medical History
HTN, DM, ESRD, AAA repair, CVA, CAD, occlusion of left ICA s/p stent
HLD, orthostatic hypotension, Afib
Right carotid endarterectomy
Anemia
Social History
Tobacco: Former Smoker
Alcohol: None
Drug: None
Personal:
Living: With Family
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
Family History
Family History: Not Pertinent
Allergies / Home Medications
Allergy/AdvReac Type Severity Reaction Status Date / Time
adhesive Allergy Shortness Verified 09/25/24 16:08
of Breath
�Medication �Instructions �Recorded �Confirmed �Type
apixaban 5 mg tablet (Eliquis) 5 mg PO BID Blood Clot 11/02/20 09/25/24 History
Prevention/Tx
diltiazem HCl 120 mg 120 mg PO DAILY Heart 11/02/20 09/25/24 History
capsule,extended release 24 hr Disease/Condition
midodrine 10 mg tablet 10 mg PO MOWEFR take before 11/02/20 09/25/24 History
dialysis
insulin degludec 100 unit/mL (3 15 unit SC HS Diabetes 04/09/24 09/25/24 History
mL) subcutaneous pen (Tresiba
FlexTouch U-100 insulin)
pioglitazone 15 mg tablet 15 mg PO DAILY Diabetes 04/09/24 09/25/24 History
rosuvastatin 40 mg tablet 40 mg PO HS High Cholesterol 04/09/24 09/25/24 History
glimepiride 4 mg tablet 4 mg PO BID 09/25/24 09/25/24 History
metoprolol succinate 100 mg 100 mg PO BID 09/25/24 09/25/24 History
tablet,extended release 24 hr
(Toprol XL)
Review of Systems
-
History Source: Patient
All other systems: Negative unless noted
Physical Exam
Vital Signs
Vital Signs
Temp Pulse Resp BP Pulse Ox
98.2 F 95 20 141/67 96
09/26/24 03:00 09/26/24 03:00 09/26/24 03:00 09/26/24 03:00 09/26/24 03:00
Lab Results
eGFR 10.77 09/25/24 20:10
Albumin 4.1 g/dl (3.5-5.0) 09/25/24 20:10
Physical Exam
General: AOx3, Nontoxic , NAD
HEENT: PERRL, EOMI, Anicteric, Conjunctivae Clear, Ear/Nose Intact, Hearing Normal, Oropharynx Clear/Moist, Dentition Intact, Facial Symmetry, Neck Supple, Neck: Trachea Midline, No JVD and No Thyromegaly, no Bruits
Respiratory: Clear to auscultation bilaterally with normal lung exersion
Cardiac: S1/S2 and Regular Rate/Rhythm
Breast: Deferred by me
Abdomen: Soft, Nontender, Nondistended, Normal Bowel Sounds and No Hepatosplenomegaly
Rectal: Deferred by Provider
Genito-urinary: No Costovertebral Tenderness
Extremities: No Clubbing, No Cyanosis and No Edema
Skin: No Rash or open lesions
Neuro: Nonfocal/Grossly Intact, CN II-XII (Intact) and Strength (Musculoskeletal exam 5 out of 5 both upper and lower extremities)
Hematologic/Lymphatic: No Cervical Lymphadenopathy, No Submandibular Lymphadenopathy and No Supraclavicular Lymphadenopathy
Psych: Mood/afflect pleasant, Insight/judgement good and Appropriate
Vascular: plus 1 pedal and radial pulses
Vascular Access: AVF (LUE AVF: Proximal ulceration without weeping slight erythema)
Data Reviewed
-
Labs: Labs Reviewed by me (BMP CBC)
Old Records: Reviewed (Reviewed previous nephrology consult for ESRD from date: 04/18/24 in EMR)
Assessment/Plan
-
Impression:
Ulceration of Left Upper extremity AVF
ESRD F (baraga )
hx of Right carotid endarterectomy with bovine pericardial patch angioplasty 04/18
orthostatic hypotension
Anemia of CKD
HTN
Afib
left CEA
AAA repair
HLD
DM
Plan:
- Will attempt dialysis and go more distal for access than the ulceration on the left upper extremity AV fistula
- Further management of ulceration per vascular surgery
-MODE re: anemia
- Provide midodrine for blood pressure support on dialysis
- Maintaining diltiazem and Eliquis in setting of atrial fibrillation
[2024-09-26] MEDS: NOVOLOG FLEXPEN-LOW RESISTANCE SC ×2 (08:06→11:52)
[2024-09-26 08:07] LABS: Glucose - Point of Care 103 mg/dl (70-99)
[2024-09-26] MEDS: TOPROL XL 100 MG PO ×2 (08:07→20:25)
[2024-09-26] MEDS: CARDIZEM CD 120 MG PO (08:07)
[2024-09-26 08:17] LABS: Hematocrit 33.0 % (39.0-52.0); Hemoglobin 10.3 g/dL (13.0-18.0); Mean Corp Hgb Conc. 31.2 g/dL (33.0-37.0); Mean Corpuscular Volume 94.3 fL (80.0-94.0); Nucleated Red Blood Cells % 0 % (-); Platelet Count 128 10^3/uL (130-400); Red Cell Dist. Width 16.4 % (11.5-14.5)
[2024-09-26 08:58] LABS: Blood Urea Nitrogen 47 mg/dl (9-20); Calcium 9.2 mg/dl (8.4-10.2); Carbon Dioxide 25 mmol/L (22-30); Chloride 104 mmol/L (98-107); Estimated Creatinine Clearance 11 ml/min; Glucose 111 mg/dl (70-99); Potassium 4.1 mmol/L (3.5-5.1); Sodium 139 mmol/L (135-145); eGFR 9.68
--- NOTE | 2024-09-26 09:23 | W.PN.UPDATE ---
Update Note
Progress Note Update
I saw and evaluated the patient. I reviewed the resident�s note and agree with findings and plan as documented in the resident�s note.
No new complaints.
Gen: NAD, Awake and alert
Eyes: EOMI, PERRLA, no scleral icterus.
Neck: supple.
CV: remains irreg/irreg, +S1/S2, no m/r/g.
Resp: CTAB anteriorly, no rales, wheezes, or rhonchi.
Skin: No rashes. Intact dressing over LUE ulcer.
Neuro: CN 2-12 intact, non-focal.
Psych: Normal mood and affect.
LUE fistula:
-vascular saw in c/s, OK to use fistula at this time as long as it is not punctured at the site of the ulceration (which is scabbed over)
-holding home Eliquis until pt successfully completes HD session
ESRD:
-last HD 09/23/24, getting HD today
-renal following
Other problems:
Anemia of chronic renal disease
DM2: cont Lantus, SSI/accuchecks
Essential hypertension: cont BB
Orthostatic hypotension: cont midodrine
Afib (presumed permanent): Holding Eliquis as above. Cont Cardizem.
h/o CVA: Holding Eliquis as above. Cont statin.
FULL
[2024-09-26 10:37] LABS: Glycohemoglobin (HgbA1c) 6.3 % (4.0-5.6)
--- NOTE | 2024-09-26 10:37 | W.PN.NEPH.HD ---
Assessment
-
Patient seen on dialysis
Hemodynamically stable with UF with blood pressure at 169
AV fistula access needles distal to ulceration point with good function
Progress Note - Hemodialysis
-
Date of Service: September 26, 2024
Duration: 30 minutes and 3 hours
Potassium Bath: 3
Calcium Bath: 2.5
Opti-Dialyzer: 160
Ultrafiltration: Other (2 to 3 kg)
Blood Flow: 400
Dialysate Flow: 600
Heparin: None
EPO: 4000
[2024-09-26 11:00] VITALS: BP 169/82
--- NOTE | 2024-09-26 11:41 | W.PN.HOSP.TC ---
Today's Communication/Plan
-
- trend cmp, follow nephro
Assessment / Plan
Assessment / Plan
Left upper extremity fistula:
- Previous site of HD is ulcerated and scabbing over, without any discharge, vascular surgery to manage, currently under observation.
-hold home Eliquis for possible surgical intervention
ESRD
Anemia of chronic renal disease:
- last HD 09/23/24
- renal is following and placed patient on dialysis today (09/26/24), used a different insertion point distal to the previous ulceration point
- Clinically and hemodynamically stable
- Continue patient on tele
- Patients K+ is 4.1, and creatinine is 5.9, and hgba1c is 6.3
- continue patient on 2 gram sodium diet
- Hgb is 10.3 ( chronically from 8.3 - 11) , MCV is 94.3, asymptomatic, observe
DM2:
- cont Lantus, todays blood glucose is 111, SSI/accuchecks
Essential hypertension:
- Patients blood pressure in 146/88
- cont BB, CCB
Orthostatic hypotension:
- cont midodrine as needed
Afib (presumed permanent):
-Holding Eliquis as above
- Cont Cardizem.
h/o CVA: Holding Eliquis as above. Cont statin.
Anticipated Discharge: Within 24 hours
Subjective/Interval History
-
Date of Service: September 26, 2024
No acute medical complaints.
No overnight events.
Objective Data
-
Labs:
Laboratory Results
09/26/24
07:36
WBC 6.7
Hgb 10.3 L
Hct 33.0 L
Plt Count 128 L
Sodium 139
Potassium 4.1
Chloride 104
Carbon Dioxide 25
BUN 47 H
Creatinine 5.9 H*
Glucose 111 H
Calcium 9.2
Vital Signs:
Vital Signs
Temp Pulse Resp BP Pulse Ox
98.2 F 100 16 169/82 100
09/26/24 11:00 09/26/24 11:00 09/26/24 11:00 09/26/24 11:00 09/26/24 11:00
Review of Systems
-
History Source: Patient
All other systems: Reviewed and negative
Physical Exam
-
General: Well Developed and Well Nourished
Respiratory: Clear to Auscultation
Cardiac: Regular Rhythm and S1/S2
GI: Soft, Nontender, Nondistended and Normal Bowel Sounds
Musculoskeletal: No Clubbing, No Cyanosis and No Edema
Skin: Warm, Dry and Other (1cm left upper extremity ulcer over AVF with erythema and scabbing over, no discharge )
Neuro: AO x 3
Data Reviewed
-
Labs: Labs Reviewed by me and Discussed with Physician
[2024-09-26 11:50] LABS: Glucose - Point of Care 92 mg/dl (70-99)
--- NOTE | 2024-09-26 11:55 | CM ---
CM reviewed chart, patient seen bedside, receiving dialysis. Call to patients son, Dharmesh, to complete initial assessment. Patient resides with his and daughter in a two story home, about 5 steps to enter. Patient is independent with ambulation,
receives dialysis M,W,Arsenio Manuel ([address] [facility] location). Son reports patient has been to rehab in the past several years ago after having a stroke. PCP Rosetta Lino, pharmacy [facility]. Son reports he will be coming to
visit patient today with his mother. CM will continue to follow for all discharge planning needs.
Plan; return home with family, continue HD
[facility] [place] [facility] location
[2024-09-26] MEDS: RETACRIT 4000 UNITS IV (12:24)
[2024-09-26 15:00] VITALS: BP 108/58
[2024-09-26 17:02] LABS: Glucose - Point of Care 196 mg/dl (70-99)
[2024-09-26] MEDS: NOVOLOG FLEXPEN-LOW RESISTANCE 1 UNITS SC (17:46)
[2024-09-26 19:00] VITALS: BP 119/66
[2024-09-26 21:25] LABS: Glucose - Point of Care 98 mg/dl (70-99)
[2024-09-26] MEDS: LANTUS 0.15 UNITS SC (21:39)
[2024-09-26] MEDS: CRESTOR 40 MG PO (21:41)
[2024-09-26 23:00] VITALS: BP 106/48
[2024-09-27 00:06] LABS: Glucose - Point of Care 82 mg/dl (70-99)
[2024-09-27 03:00] VITALS: BP 115/58
[2024-09-27 03:52] VITALS: BMI 29.9
[2024-09-27 07:00] VITALS: BP 120/65
[2024-09-27 07:46] LABS: Glucose - Point of Care 97 mg/dl (70-99)
[2024-09-27] MEDS: NOVOLOG FLEXPEN-LOW RESISTANCE SC ×2 (07:48→16:43)
[2024-09-27] MEDS: CARDIZEM CD 120 MG PO (08:19)
[2024-09-27] MEDS: TOPROL XL 100 MG PO (08:19)
--- NOTE | 2024-09-27 08:29 | W.PN.VS ---
Addendum entered and electronically signed by Galileo Gonzalez III, MD 09/27/24 11:02:
This patient was seen and examined in collaboration with GRACY Griggs. I agree with the history and physical exam as well as the assessment and plan. I have the following additions:
Okay to continue use of access but avoid area of scab
Short interval follow-up to be arranged with Dr. Zeng in the office
Signed:
Galileo Gonzalez III, MD
Vascular Surgery
[facility]
Original Note:
Today's Communication / Plan
-
Seen and assessed with Dr. Gonzalez
Assessment/Plan
-
69-year-old male here with ulceration of proximal end of AVF, left upper extremity
Plan:
May continue using AVF, avoid accessing near ulceration-this was relayed to patient using translation device
1 week outpatient follow-up with vascular office, nita for MAUREEN from vascular standpoint
Subjective Data
-
Date of Service: September 27, 2024
Patient seen at bedside this a.m. with Dr. Gonzalez. Patient offers no complaints at this time. No events overnight. Left upper extremity dressing intact with no drainage.
Objective Data
-
Vital Signs
Temp Pulse Resp BP Pulse Ox
98.3 F 112 16 120/65 98
09/27/24 07:00 09/27/24 07:00 09/27/24 07:00 09/27/24 07:00 09/27/24 07:00
Intake and Output
09/26/24 09/27/24 09/28/24
06:59 06:59 06:59
Intake Total 180 / 180
Balance 180 / 180
Intake:
Oral fluids 180 / 180
Other:
Number of approximated MODERATE 1
amounts of urine
Calcium 9.2 mg/dl (8.4-10.2) 09/26/24 07:36
Total Bilirubin 0.5 mg/dl (0.2-1.3) 09/25/24 20:10
AST 19 U/L (17-59) 09/25/24 20:10
ALT < 10 U/L (0-50) 09/25/24 20:10
Alkaline Phosphatase 50 U/L (38-126) 09/25/24 20:10
Total Protein 7.1 g/dl (6.3-8.2) 09/25/24 20:10
Albumin 4.1 g/dl (3.5-5.0) 09/25/24 20:10
Physical Exam
-
Awake and alert
No tachypnea on room air
No tachycardia
Abdomen soft
Left upper extremity dressing removed
Ulcer at proximal end of AVF dry, scabbed, appears superficial
Palpable thrill at AVF site, hand warm and pink
Ulcer site redressed
[2024-09-27 08:38] LABS: Hematocrit 38.3 % (39.0-52.0); Hemoglobin 12.1 g/dL (13.0-18.0); Mean Corp Hgb Conc. 31.6 g/dL (33.0-37.0); Mean Corpuscular Volume 92.1 fL (80.0-94.0); Nucleated Red Blood Cells % 0 % (-); Platelet Count 149 10^3/uL (130-400); Red Cell Dist. Width 16.5 % (11.5-14.5)
[2024-09-27 09:40] LABS: ALT (SGPT) < 10 U/L (0-50); AST (SGOT) 19 U/L (17-59); Albumin 4.4 g/dl (3.5-5.0); Alkaline Phosphatase 49 U/L (38-126); Blood Urea Nitrogen 36 mg/dl (9-20); Calcium 9.2 mg/dl (8.4-10.2); Carbon Dioxide 31 mmol/L (22-30); Chloride 95 mmol/L (98-107); Estimated Creatinine Clearance 14 ml/min; Glucose 91 mg/dl (70-99); Potassium 4.0 mmol/L (3.5-5.1); Sodium 136 mmol/L (135-145); Total Protein 7.6 g/dl (6.3-8.2); eGFR 13.05
[2024-09-27] MEDS: ELIQUIS 5 MG PO (09:57)
--- NOTE | 2024-09-27 10:10 | W.PN.HOSP.TC ---
Today's Communication/Plan
-
- vascular outpatient follow up in 1 week.
Assessment / Plan
Assessment / Plan
Left upper extremity fistula:
- Previous site of HD is ulcerated and scabbing over, without any discharge, vascular surgery to manage, currently under observation.
- hold home Eliquis for possible surgical intervention
ESRD
Anemia of chronic renal disease:
- last HD 09/23/24
- renal is following and placed patient on dialysis (09/26/24), used a different insertion point distal to the previous ulceration point
- Clinically and hemodynamically stable
- Continue patient on tele
- Patients K+ is 4.0, and creatinine is 4.6, and hgba1c is 6.3
- continue patient on 2 gram sodium diet
- Hgb is 10.3 ( chronically from 8.3 - 11) , MCV is 94.3, asymptomatic, observe
- 1 week outpatient follow-up with vascular office, okay for DC from vascular standpoint
DM2:
- cont Lantus, todays blood glucose is 91 well controlled, SSI/accuchecks
Essential hypertension:
- Patients blood pressure in 120/65, asymptomatic
- cont BB, CCB
Orthostatic hypotension:
- cont midodrine as needed
Afib (presumed permanent):
- restarted pt on eliquis
- Cont Cardizem.
h/o CVA: . Cont statin.
Anticipated Discharge: Today
Subjective/Interval History
-
Date of Service: September 27, 2024
No acute medical complaints.
No overnight events
Objective Data
-
Labs:
Laboratory Results
09/27/24
08:16
WBC 8.2
Hgb 12.1 L
Hct 38.3 L
Plt Count 149
Sodium 136
Potassium 4.0
Chloride 95 L
Carbon Dioxide 31 H
BUN 36 H
Creatinine 4.6 H*
Glucose 91
Calcium 9.2
Total Bilirubin 0.7
AST 19
ALT < 10
Alkaline Phosphatase 49
Vital Signs:
Vital Signs
Temp Pulse Resp BP Pulse Ox
98.3 F 112 16 120/65 98
09/27/24 07:00 09/27/24 07:00 09/27/24 07:00 09/27/24 07:00 09/27/24 07:00
I&O
09/26/24 09/27/24 09/28/24
06:59 06:59 06:59
Intake Total 180 / 180
Balance 180 / 180
Review of Systems
-
History Source: Patient
All other systems: Reviewed and negative
Physical Exam
-
General: Well Developed and Well Nourished
Respiratory: Clear to Auscultation
Cardiac: Regular Rhythm and S1/S2
GI: Soft, Nontender, Nondistended and Normal Bowel Sounds
Musculoskeletal: No Clubbing, No Cyanosis and No Edema
Skin: Warm, Dry and Other (1cm left upper extremity ulcer over AVF with erythema and scabbing over, no discharge )
Neuro: AO x 3
Data Reviewed
-
Labs: Labs Reviewed by me and Discussed with Physician
--- NOTE | 2024-09-27 10:39 | W.PN.UPDATE ---
Update Note
Progress Note Update
I saw and evaluated the patient. I reviewed the resident�s note and agree with findings and plan as documented in the resident�s note.
No new complaints.
Gen: NAD, Awake and alert
Eyes: EOMI, PERRLA, no scleral icterus.
Neck: supple.
CV: tachy, irreg/irreg, +S1/S2, no m/r/g.
Resp: remains CTAB anteriorly, no rales, wheezes, or rhonchi.
Skin: No rashes.
Neuro: CN 2-12 intact, non-focal.
Psych: Normal mood and affect.
LUE fistula:
-vascular saw in c/s, OK to use fistula at this time as long as it is not punctured at the site of the ulceration (which is scabbed over)
-No surgical intervention at this time as per vascular surgery. Vascular surgery has cleared the patient for discharge.
ESRD:
-last HD 09/23/24, getting HD today
-renal following
Other problems:
Anemia of chronic renal disease
DM2: cont Lantus, SSI/accuchecks
Essential hypertension: cont BB
Orthostatic hypotension: cont midodrine
Afib (presumed permanent): resume Eliquis, cont Cardizem.
h/o CVA: resume Eliquis, cont statin.
FULL/Eliquis
Total time spent on d/c = 31 min. This included today's physical exam, progress note, review of laboratory and diagnostic data, preparation of discharge documents and prescriptions, and discussions about the pt's hospital course and discharge plan
with the patient and other medical assistant dermatology involved in the patient's care.
[2024-09-27 11:10] VITALS: BP 120/85
--- NOTE | 2024-09-27 12:27 | CM ---
CM reviewed chart, patient for discharge today. CM spoke with patients , will provide transportation home around 5:00 p.m. after dialysis. IMM verbally reviewed, placed in chart. CM will continue to follow for all discharge planning needs.
Plan; home with family, continue outpatient HD
[facility] location
[2024-09-27 12:29] LABS: Glucose - Point of Care 206 mg/dl (70-99)
[2024-09-27] MEDS: NOVOLOG FLEXPEN-LOW RESISTANCE 2 UNITS SC (12:51)
--- NOTE | 2024-09-27 13:38 | W.PN.NEPH.HD ---
Progress Note - Hemodialysis
-
Date of Service: September 27, 2024
Duration: 30 minutes and 3 hours
Potassium Bath: 3
Calcium Bath: 2.5
Opti-Dialyzer: 160
Ultrafiltration: Other (2 to 3 kg)
Blood Flow: 400
Dialysate Flow: 600
Heparin: None
EPO: 4000
--- NOTE | 2024-09-27 14:11 | W.DCSUMMARY ---
Discharge Summary
Discharge Data
Date of Admission: 09/25/24
Date of Discharge: 09/27/24
-
Pending Results: No
Hospital Course
Discharging Physician : Dr. Kadeem Mathew and Dr. Nic Peterson
Disposition : Home
Primary care physician : Dr. Rosetta Lino
Principal Discharge diagnosis : Left upper extremity fistula, end-stage renal disease
Chronic Discharge diagnosis : Anemia of chronic renal disease, diabetes mellitus type 2, essential hypertension, orthostatic hypotension, atrial fibrillation presumed to be permanent, history of CVA
Hospital Course : 69-year-old male with past medical history of previous CVA, AAA, A-fib, peripheral arterial and vascular disease, CKD (dialysis Monday, Monday, Monday), insulin-dependent diabetes presenting to the ER for evaluation after he
went to go to dialysis and they noticed a small wound at the proximal most portion of the left extremity fistula and recommended the patient come to the ER for further evaluation, patient's spouse reports that Dr. Zeng is reportedly aware of this.
Has some slight pain with this. Last dialysis session was this past Monday (09/16/2024) which patient reports was a full session, did not receive dialysis on admission. Patient denies any fevers, chills, rigors and is without any other concerns on
admission.
Problem #1: Left upper extremity fistula/ ESRD:
- Labs on admission include WBC of 6.7 and normal, hemoglobin of 11.5, MCV 91.9, platelet count normal, creatinine of 5.1 which is elevated, GFR of 11.53, sodium 137 and normal, potassium 3.8 and normal. On physical exam there is a left upper
extremity arteriovenous fistula with small area of ulceration/wound over upper area of fistula. Both vascular surgery and nephrology were consulted. Vascular surgery are okay with attempting hemodialysis on initial consult and kept the patient
under observation for 24 hours and n.p.o. in case hemodialysis was not possible so that he would be taken to the operating room for excision of ulcerated skin and AV fistula revision, this was communicated to form worker as well. Nephrology was
also consulted and performed dialysis but had a more distal location to the left upper extremity AV fistula. They started patient on midodrine for blood pressure support on dialysis while maintaining patient on diltiazem and Eliquis in the setting
of atrial fibrillation. Overall patient received dialysis on and 25 and 09/27/2024. On discharge patient labs are hemoglobin of 12.1, sodium of 136 and normal, potassium of 4 and normal, creatinine of 4.6 trending down from 5.1 on admission,
GFR of 13.05. Patient has no acute medical complaints on discharge. CBC and CMP in 1 week with PCP. Patient is to resume dialysis where he normally gets it. Follow-up with vascular surgery in 1 week.
Problem #2: Diabetes mellitus type 2
-Patient's blood glucose level is 91 on discharge and well-controlled, continue home diabetic regimen on discharge.
Problem 3: Essential hypertension:
- Patient's blood pressure is 125/65 on discharge and he is asymptomatic. Continue home dose beta-angélica and calcium channel angélica.
Problem #4: Orthostatic hypotension:
- Continue home dose midodrine on discharge.
Problem #5: Atrial fibrillation presumed to be permanent
- Patient restarted on home dose of Eliquis and to be continued on discharge. Continue Cardizem.
Problem #6: Hyperlipidemia
-Reduced patient's Crestor dose from 40 mg to 10 mg , as 40 mg is too much for someone with end-stage renal disease and can precipitate myositis/rhabdomyolysis.
Important imaging findings :
Procedure findings :
Discharge Plan
-
Patient Disposition: Home (Routine Discharge)
Discharge Diagnosis/Procedures: Left upper extremity fistula, End stage renal disease, anemia of chronic renal disease, Diabetes mellitus type 2, Essential hypertension, orthostatic hypotension, Atrial fibrillation, history of CVA
Condition: Good
Diet: 2 Gram Sodium and Diabetic, Carb Controlled
Bathing Restrictions: OK to Shower
Blood Work: CBC in 1 week with PCP
CMP in 1 week with PCP
LDL in 4 weeks with PCP
Wound Care: Please place non adherent pad/gauze over AVF ulcer followed by 4x4 gauze and secured with ena wrap. Change daily or as needed if soiled. AVF can be accessed ONLY if puncture sites are no where near fistula ulceration.
Referrals:
Rosetta Lino MD [Family Provider, Internal Medicine] - in less than 1 week
Ale Bhatt PA-C [Specified Professional Personl, Vascular Surgery] - 10/03/24 10:00 am
Additional Discharge Medication Instructions: Changed Crestor (rosuvastatin) dose from 40mg to 10 mg as patient has ESRD and increased dose of Crestor could cause rhabdomyolysis
Prescriptions:
New
rosuvastatin [Crestor] 10 mg tablet
10 mg PO DAILY Qty: 30 0RF
Continued
diltiazem HCl 120 MG capsule,extended release 24hr
120 mg PO DAILY
midodrine 10 MG tablet
10 mg PO MOWEFR
Eliquis 5 MG tablet
5 mg PO BID
pioglitazone 15 mg Tablet
15 mg PO DAILY
insulin degludec [Tresiba FlexTouch U-100] 100 unit/mL (3 mL) Insulin Pen
15 unit SC HS
metoprolol succinate [Toprol XL] 100 mg Tablet Extended Release 24 Hr
100 mg PO BID
glimepiride 4 mg Tablet
4 mg PO BID
Discontinued
rosuvastatin 40 mg Tablet
40 mg PO HS
Discharge Orders:
Discharge Patient (As Directed); Ordered 09/27/24
Ordered By: Kadeem Mathew
Discharge Date and Time
Print Language: Slovenian
[2024-09-27 15:00] VITALS: BP 128/81
[2024-09-27 16:40] LABS: Glucose - Point of Care 96 mg/dl (70-99)
== END 2024-09-27 18:39 | disposition home or self-care (01) | DRG 314 ==
LOC: 4 WEST ACU 19:07
PROVIDERS: Clinical Nurse Specialist Family Health; Physician Assistant Medical; ADMITTING PHYSICIAN Internal Medicine; EMERGENCY PHYSICIAN Emergency Medicine; FAMILY PHYSICIAN Internal Medicine; OTHER PHYSICIAN Specialist; OTHER PHYSICIAN Surgery Vascular Surgery
PROC: 5A1D70Z Performance of Urinary Filtration, Intermittent, Less than 6 Hours Per Day (ICD-10-PCS; 2024-09-26)
DX: T82.898A Other specified complication of vascular prosthetic devices, implants and grafts, initial encounter (principal); N18.6 End stage renal disease; I69.351 Hemiplegia and hemiparesis following cerebral infarction affecting right dominant side; I12.0 Hypertensive chronic kidney disease with stage 5 chronic kidney disease or end stage renal disease; L98.499 Non-pressure chronic ulcer of skin of other sites with unspecified severity; Y84.1 Kidney dialysis as the cause of abnormal reaction of the patient, or of later complication, without mention of misadventure at the time of the procedure; Y82.8 Other medical devices associated with adverse incidents; Y83.2 Surgical operation with anastomosis, bypass or graft as the cause of abnormal reaction of the patient, or of later complication, without mention of misadventure at the time of the procedure; E11.51 Type 2 diabetes mellitus with diabetic peripheral angiopathy without gangrene; E11.22 Type 2 diabetes mellitus with diabetic chronic kidney disease; D63.1 Anemia in chronic kidney disease; I95.1 Orthostatic hypotension; E78.00 Pure hypercholesterolemia, unspecified; I25.10 Atherosclerotic heart disease of native coronary artery without angina pectoris; I48.91 Unspecified atrial fibrillation; Z99.2 Dependence on renal dialysis; Z79.01 Long term (current) use of anticoagulants; Z79.84 Long term (current) use of oral hypoglycemic drugs; Z79.4 Long term (current) use of insulin; Z79.899 Other long term (current) drug therapy; Z86.79 Personal history of other diseases of the circulatory system; Z87.891 Personal history of nicotine dependence
CPT/HCPCS: 80048; 80053; 82962; 83036; 85025; 85610; 85730; 87070; 99285; G0257; Q5106

== ENCOUNTER → 2024-12-05 09:57 | Outpatient (REF) | payer OTHER, SELFPAY | LOC: RAD 09:57 | PROVIDERS: ATTENDING PHYSICIAN Surgery Vascular Surgery; FAMILY PHYSICIAN Internal Medicine | DX: I73.9 Peripheral vascular disease, unspecified (principal); Z98.890 Other specified postprocedural states; I65.22 Occlusion and stenosis of left carotid artery | CPT/HCPCS: 93880; 93922; 93925; 93978 ==

== ENCOUNTER → 2024-12-31 08:50 | Outpatient (REF) | payer OTHER, SELFPAY | LOC: RAD 08:50 | PROVIDERS: ATTENDING PHYSICIAN Surgery Vascular Surgery; FAMILY PHYSICIAN Internal Medicine | DX: I65.22 Occlusion and stenosis of left carotid artery (principal) | CPT/HCPCS: 70496; 70498; Q9967 ==